=== PATIENT | male | born 1950 | race Caucasian/White ===

== ENCOUNTER 2016-02-11 08:41 | Outpatient (RCR) | payer BC ==
--- OUTSIDE RECORDS SUMMARY | 2015-11-18 08:58 | XMS REPORT | Continuity of Care Document ---
Author Author [facility] Organization [facility] Address Unknown Phone Unavailable Care Team Providers Care Community Support Specialist Name Role Phone TI LAU MD PCP Insurance Providers Payer Name Policy Number Subscriber Name Relationship [facility] [id number] David Alexis 18 Self / Same As Patient Advance Directives Directive Response Recorded Date/Time Advance Directives No 08/22/15 9:07pm Health Care Power of Ballistic Expert No 08/22/15 9:07pm Organ Donor Y Per - Mariza 08/22/15 9:07pm Resuscitation Status Full Code 08/22/15 9:07pm Chief Complaint and Reason for Visit Chief Complaint Respiratory Problems Reason for Visit Urinary tract infection Status post partial colectomy Pneumonia Problems Active Problems Medical Problem Onset Date Status Pneumonia Unknown Acute Urinary tract infection Unknown Acute Medications Current Home Medications Medication Dose Units Route Directions Days/Qty Instructions Start Date Losartan Potassium 100 Mg 100 Mg Oral Daily 07/31/15 Amlodipine Besylate 5 Mg 5 Mg Oral Daily 07/31/15 Alprazolam 1 Mg 0.5-1 Mg Oral Daily as needed for Anxiety 08/07/15 Hydrocodone/Acetaminophen 1 Each 1 Each Oral Every 4HRS as needed for Abdominal Pain 30 08/18/15 Atenolol 50 Mg 50 Mg Oral Daily 30 08/18/15 Ciprofloxacin Hcl 500 Mg 500 Mg Oral Twice A Day 14 08/23/15 Past Home Medications Medication Directions Ordered Status Multivitamin 1 Each Tablet, 1 Tab Oral Daily 07/31/15 Discontinued Ciprofloxacin Hcl 500 Mg Tablet, 500 Mg Oral Twice A Day 08/07/15 Discontinued Social History Social History Problem Response Recorded Date/Time Alcohol Use Occasionally Uses 08/22/2015 9:07pm Recreational Drug Use No 08/22/2015 9:07pm Recent Foreign Travel No 08/22/2015 9:07pm Recent Infectious Disease Exposure No 08/22/2015 9:07pm Hospitalization with Isolation Denies 08/22/2015 9:07pm Smoking Status Former Smoker 08/22/2015 9:07pm Query Response Start Date Stop Date Smoking Status Former Smoker Hospital Discharge Instructions No hospital discharge instructions. Plan of Care Discharge Date 08/23/15 1:03am Disposition 01 HOME, SELF-CARE Condition at Discharge Improved Instructions/Education Provided Urinary Tract Infection in Men (ED) Community-acquired Pneumonia (ED) Prescriptions See Medication Section Referrals TI LAU MD - Primary Care Physician YONATAN CID MD - Additional Instructions/Education All discharge instructions reviewed with patient and/or family. Voiced understanding. Medications as instructed. Albuterol inhaler 2 puffs every 4-6 hours as needed for shortness of air. Incentive spirometer as instructed every 1-2 hours while awake. Follow-up with Dr. Cid as previously scheduled. Have nursing staff contact Dr. Cid prior to removing PICC line to notify him of diagnosis from the emergency department visit. Follow-up with family practitioner as needed. Return immediately to the emergency department for worsened pain, fever, vomiting, shortness of air, chest pain, decreased urination, inability to urinate, abdominal swelling, or any other concerns. Functional Status No functional status results. Allergies, Adverse Reactions, Alerts No known allergies. Immunizations No immunization records. Vital Signs Acute Vital Signs Vital Response Date/Time Temperature (Fahrenheit) 98.9 degrees F (97.6 - 99.5) 08/22/2015 9:07pm Temperature (Calculated Celsius) 37.21838 degrees C (36.4 - 37.5) 08/22/2015 9:07pm Temperature Source Tympanic 08/18/2015 6:22pm Pulse Rate (adult) 61 bpm (60 - 90) 08/23/2015 12:58am Respiratory Rate 18 bpm (12 - 24) 08/23/2015 12:58am O2 Sat by Pulse Oximetry 98 % (88 - 100) 08/23/2015 12:58am Blood Pressure 155/85 mm Hg 08/23/2015 12:58am Blood Pressure Mean 102 mm Hg 08/22/2015 9:07pm Pain Numeric Pain Scale 2 08/22/2015 9:07pm Pain Intensity 3 08/18/2015 1:12pm Height (Feet) 5 feet 08/22/2015 9:07pm Height (Inches) 10 inches 08/22/2015 9:07pm Height (Calculated Centimeters) 177.041877 cm 08/22/2015 9:07pm Weight (Pounds) 175 pounds 08/22/2015 9:07pm Weight (Ounces) 2.0 oz 08/18/2015 6:00am Weight (Calculated Grams) 18460.995 gm 08/18/2015 6:00am Weight (Calculated Kilograms) 79.860562 kilograms 08/22/2015 9:07pm Calculated BMI 25.0 08/07/2015 1:22pm Results Laboratory Results Test Name Result Units Flags Reference Collection Date/Time Result Date/ Time Comments White Blood Count 8.6 10^3/uL 4.3-11.0 08/02/2015 10:57am 08/02/2015 11 :13am Red Blood Count 4.98 10^6/uL 4.35-5.85 08/02/2015 10:57am 08/02/2015 11 :13am Hemoglobin 14.3 G/DL 13.3-17.7 08/02/2015 10:57am 08/02/2015 11:13am Hematocrit 43 % 40-54 08/02/2015 10:57am 08/02/2015 11:13am Mean Corpuscular Volume 85 FL 80-99 08/02/2015 10:57am 08/02/2015 11: 13am Mean Corpuscular Hemoglobin 29 PG 25-34 08/02/2015 10:57am 08/02/2015 11:13am Mean Corpuscular Hemoglobin Concent 34 G/DL 32-36 08/02/2015 10:57am 11:13am Red Cell Distribution Width 14.3 % 10.0-14.5 08/02/2015 10:57am 2015 11:13am Platelet Count 370 10^3/uL 130-400 08/02/2015 10:57am 08/02/2015 11: 13am Mean Platelet Volume 10.3 FL 7.4-10.4 08/02/2015 10:57am 08/02/2015 11: 13am Neutrophils (%) (Auto) 69 % 42-75 08/02/2015 10:57am 08/02/2015 11: 13am Lymphocytes (%) (Auto) 20 % 12-44 08/02/2015 10:57am 08/02/2015 11: 13am Monocytes (%) (Auto) 8 % 0-12 08/02/2015 10:57am 08/02/2015 11:13am Eosinophils (%) (Auto) 2 % 0-10 08/02/2015 10:57am 08/02/2015 11:13am Basophils (%) (Auto) 1 % 0-10 08/02/2015 10:57am 08/02/2015 11:13am Neutrophils # (Auto) 5.9 X 10^3 1.8-7.8 08/02/2015 10:57am 08/02/2015 11:13am Lymphocytes # (Auto) 1.8 X 10^3 1.0-4.0 08/02/2015 10:57am 08/02/2015 11:13am Monocytes # (Auto) 0.7 X 10^3 0.0-1.0 08/02/2015 10:57am 08/02/2015 11: 13am Eosinophils # (Auto) 0.2 10^3/uL 0.0-0.3 08/02/2015 10:57am 08/02/2015 11:13am Basophils # (Auto) 0.0 10^3/uL 0.0-0.1 08/02/2015 10:57am 08/02/2015 11 :13am Sodium Level 136 MMOL/L 135-145 08/02/2015 10:57am 08/02/2015 11:28am Potassium Level 4.2 MMOL/L 3.6-5.0 08/02/2015 10:57am 08/02/2015 11: 28am Chloride Level 99 MMOL/L 98-107 08/02/2015 10:57am 08/02/2015 11:28am Carbon Dioxide Level 26 MMOL/L 21-32 08/02/2015 10:57am 08/02/2015 11: 28am Anion Gap 11 MMOL/L 5-14 08/02/2015 10:57am 08/02/2015 11:28am Blood Urea Nitrogen 8 MG/DL 7-18 08/02/2015 10:57am 08/02/2015 11:28am Creatinine 0.89 MG/DL 0.60-1.30 08/02/2015 10:57am 08/02/2015 11:28am BUN/Creatinine Ratio 9 08/02/2015 10:57am 08/02/2015 11:28am Estimat Glomerular Filtration Rate > 60 08/02/2015 10:57am 2015 11:28am GFR INTERPRETIVE DATA UNITS FOR ESTIMATED GFR (eGFR): mL/min/1.73 M2 REFERENCE RANGE FOR ESTIMATED GFR (eGFR) eGFR NORMAL eGFR >60 MODERATELY DECREASED eGFR 30-59 SEVERLY DECREASED eGFR 15-29 KIDNEY FAILURE <15 (OR DIALYSIS) Glucose Level 83 MG/DL 70-105 08/02/2015 10:57am 08/02/2015 11:28am Calcium Level 9.2 MG/DL 8.5-10.1 08/02/2015 10:57am 08/02/2015 11:28am Total Bilirubin 0.9 MG/DL 0.1-1.0 08/02/2015 10:57am 08/02/2015 11: 28am Alkaline Phosphatase 104 U/L 40-136 08/02/2015 10:57am 08/02/2015 11: 28am Aspartate Amino Transf (AST/SGOT) 30 U/L 5-34 08/02/2015 10:57am 2015 11:28am Alanine Aminotransferase (ALT/SGPT) 36 U/L 0-55 08/02/2015 10:57am 11:28am Total Protein 7.4 G/DL 6.4-8.2 08/02/2015 10:57am 08/02/2015 11:28am Albumin 4.1 G/DL 3.2-4.5 08/02/2015 10:57am 08/02/2015 11:28am Pending Laboratory Results Test Name Collection Date/Time Pending Microbiology Results Procedure Source Collection Date/Time Procedures Procedure Status Date Provider(s) COLONOSCOPY AND BIOPSY Completed 08/02/15 WHITNEY BAZAN MD RESECTION OF SIGMOID COLON, OPEN APPROACH Completed 08/12/15 YONATAN CID MD EXCISION OF RECTUM, OPEN APPROACH Completed 08/12/15 YONATAN CID MD Encounters Encounter Location Arrival/Admit Date Discharge/Depart Date Attending Provider Departed Emergency Room [facility] 08/22/15 8:48pm 08/22 1:03am DEBBIE BRIZUELA Discharged Inpatient [facility] 08/07/15 10:21am 8:15pm HELEN REZA MD Departed Surgical Day Care [facility] 08/02/15 8:45am 2:50pm WHITNEY BAZAN MD Registered Clinic [facility] 07/31/15 7:18am WHITNEY BAZAN MD Recent Diagnosis
[2015-11-18 09:34] LABS: BASOPHILS % (AUTO) 1 % (0-10); EOSINOPHILS # (AUTO) 0.3 10^3/uL (0.0-0.3); EOSINOPHILS % (AUTO) 8 % (0-10); LYMPHOCYTES # (AUTO) 1.2 X 10^3 (1.0-4.0); LYMPHOCYTES % (AUTO) 34 % (12-44); MEAN CORPUSCULAR HEMOGLOBIN 29 PG (25-34); MEAN CORPUSCULAR HGB CONC 35 G/DL (32-36); MEAN CORPUSCULAR VOLUME 83 FL (80-99); MEAN PLATELET VOLUME 11.2 FL (7.4-10.4); MONOCYTES # (AUTO) 0.6 X 10^3 (0.0-1.0); MONOCYTES % (AUTO) 19 % (0-12); NEUTROPHILS # (AUTO) 1.3 X 10^3 (1.8-7.8); NEUTROPHILS % (AUTO) 38 % (42-75); PLATELET COUNT 146 10^3/uL (130-400); RED BLOOD COUNT 5.24 10^6/uL (4.35-5.85); RED CELL DISTRIBUTION WIDTH 13.8 % (10.0-14.5); WHITE BLOOD COUNT 3.4 10^3/uL (4.3-11.0)
[2015-11-18 10:06] LABS: ANION GAP 10 MMOL/L (5-14); BLOOD UREA NITROGEN 13 MG/DL (7-18); BUN/CREATININE RATIO 13; CALCIUM 9.4 MG/DL (8.5-10.1); CARBON DIOXIDE 23 MMOL/L (21-32); CHLORIDE 105 MMOL/L (98-107); CREATININE SERUM 1.02 MG/DL (0.60-1.30); GFR ESTIMATED > 60; GLUCOSE 102 MG/DL (70-105); POTASSIUM 4.3 MMOL/L (3.6-5.0); SODIUM 138 MMOL/L (135-145)
[2015-11-25 09:47] LABS: BASOPHILS # (AUTO) 0.1 10^3/uL (0.0-0.1); BASOPHILS % (AUTO) 1 % (0-10); EOSINOPHILS # (AUTO) 0.1 10^3/uL (0.0-0.3); EOSINOPHILS % (AUTO) 3 % (0-10); LYMPHOCYTES # (AUTO) 1.5 X 10^3 (1.0-4.0); LYMPHOCYTES % (AUTO) 31 % (12-44); MEAN CORPUSCULAR HEMOGLOBIN 28 PG (25-34); MEAN CORPUSCULAR HGB CONC 34 G/DL (32-36); MEAN CORPUSCULAR VOLUME 83 FL (80-99); MEAN PLATELET VOLUME 11.5 FL (7.4-10.4); MONOCYTES # (AUTO) 0.8 X 10^3 (0.0-1.0); MONOCYTES % (AUTO) 17 % (0-12); NEUTROPHILS # (AUTO) 2.4 X 10^3 (1.8-7.8); NEUTROPHILS % (AUTO) 49 % (42-75); PLATELET COUNT 129 10^3/uL (130-400); RED BLOOD COUNT 5.03 10^6/uL (4.35-5.85); RED CELL DISTRIBUTION WIDTH 14.5 % (10.0-14.5)
[2015-11-25 10:20] LABS: ALANINE AMINOTRANSFERASE 28 U/L (0-55); ANION GAP 12 MMOL/L (5-14); ASPARTATE AMINO TRANSFERASE 32 U/L (5-34); BILIRUBIN,TOTAL 0.3 MG/DL (0.1-1.0); BLOOD UREA NITROGEN 14 MG/DL (7-18); BUN/CREATININE RATIO 15; CALCIUM 9.1 MG/DL (8.5-10.1); CARBON DIOXIDE 20 MMOL/L (21-32); CHLORIDE 109 MMOL/L (98-107); CREATININE SERUM 0.93 MG/DL (0.60-1.30); GFR ESTIMATED > 60; GLUCOSE 123 MG/DL (70-105); MAGNESIUM 2.3 MG/DL (1.8-2.4); POTASSIUM 3.7 MMOL/L (3.6-5.0); SODIUM 141 MMOL/L (135-145)
[2015-12-02 09:08] LABS: BASOPHILS % (AUTO) 1 % (0-10); EOSINOPHILS # (AUTO) 0.3 10^3/uL (0.0-0.3); EOSINOPHILS % (AUTO) 8 % (0-10); LYMPHOCYTES # (AUTO) 1.3 X 10^3 (1.0-4.0); LYMPHOCYTES % (AUTO) 36 % (12-44); MEAN CORPUSCULAR HEMOGLOBIN 29 PG (25-34); MEAN CORPUSCULAR HGB CONC 35 G/DL (32-36); MEAN CORPUSCULAR VOLUME 83 FL (80-99); MEAN PLATELET VOLUME 11.7 FL (7.4-10.4); MONOCYTES # (AUTO) 0.6 X 10^3 (0.0-1.0); MONOCYTES % (AUTO) 18 % (0-12); NEUTROPHILS # (AUTO) 1.3 X 10^3 (1.8-7.8); NEUTROPHILS % (AUTO) 38 % (42-75); PLATELET COUNT 112 10^3/uL (130-400); RED BLOOD COUNT 5.17 10^6/uL (4.35-5.85); RED CELL DISTRIBUTION WIDTH 14.7 % (10.0-14.5); WHITE BLOOD COUNT 3.5 10^3/uL (4.3-11.0)
[2015-12-02 09:49] LABS: ANION GAP 6 MMOL/L (5-14); BLOOD UREA NITROGEN 14 MG/DL (7-18); BUN/CREATININE RATIO 13; CALCIUM 9.2 MG/DL (8.5-10.1); CARBON DIOXIDE 28 MMOL/L (21-32); CHLORIDE 106 MMOL/L (98-107); CREATININE SERUM 1.09 MG/DL (0.60-1.30); GFR ESTIMATED > 60; GLUCOSE 127 MG/DL (70-105); POTASSIUM 4.6 MMOL/L (3.6-5.0); SODIUM 140 MMOL/L (135-145)
[2015-12-09 08:51] LABS: BASOPHILS % (AUTO) 1 % (0-10); EOSINOPHILS # (AUTO) 0.1 10^3/uL (0.0-0.3); EOSINOPHILS % (AUTO) 2 % (0-10); LYMPHOCYTES # (AUTO) 1.3 X 10^3 (1.0-4.0); LYMPHOCYTES % (AUTO) 28 % (12-44); MEAN CORPUSCULAR HEMOGLOBIN 29 PG (25-34); MEAN CORPUSCULAR HGB CONC 35 G/DL (32-36); MEAN CORPUSCULAR VOLUME 82 FL (80-99); MEAN PLATELET VOLUME 10.8 FL (7.4-10.4); MONOCYTES # (AUTO) 0.8 X 10^3 (0.0-1.0); MONOCYTES % (AUTO) 19 % (0-12); NEUTROPHILS # (AUTO) 2.3 X 10^3 (1.8-7.8); NEUTROPHILS % (AUTO) 51 % (42-75); PLATELET COUNT 122 10^3/uL (130-400); RED BLOOD COUNT 4.94 10^6/uL (4.35-5.85); RED CELL DISTRIBUTION WIDTH 14.9 % (10.0-14.5); WHITE BLOOD COUNT 4.5 10^3/uL (4.3-11.0)
[2015-12-09 09:16] LABS: ALANINE AMINOTRANSFERASE 32 U/L (0-55); ALBUMIN 3.8 G/DL (3.2-4.5); ANION GAP 9 MMOL/L (5-14); ASPARTATE AMINO TRANSFERASE 37 U/L (5-34); BILIRUBIN,TOTAL 0.4 MG/DL (0.1-1.0); BLOOD UREA NITROGEN 19 MG/DL (7-18); BUN/CREATININE RATIO 22; CALCIUM 9.3 MG/DL (8.5-10.1); CARBON DIOXIDE 24 MMOL/L (21-32); CHLORIDE 106 MMOL/L (98-107); CREATININE SERUM 0.87 MG/DL (0.60-1.30); GFR ESTIMATED > 60; GLUCOSE 116 MG/DL (70-105); MAGNESIUM 2.1 MG/DL (1.8-2.4); POTASSIUM 3.9 MMOL/L (3.6-5.0); SODIUM 139 MMOL/L (135-145); TOTAL PROTEIN 7.1 G/DL (6.4-8.2)
[2015-12-16 08:59] LABS: BASOPHILS % (AUTO) 1 % (0-10); EOSINOPHILS # (AUTO) 0.2 10^3/uL (0.0-0.3); EOSINOPHILS % (AUTO) 6 % (0-10); LYMPHOCYTES # (AUTO) 1.3 X 10^3 (1.0-4.0); LYMPHOCYTES % (AUTO) 40 % (12-44); MEAN CORPUSCULAR HEMOGLOBIN 29 PG (25-34); MEAN CORPUSCULAR HGB CONC 34 G/DL (32-36); MEAN CORPUSCULAR VOLUME 84 FL (80-99); MONOCYTES # (AUTO) 0.6 X 10^3 (0.0-1.0); MONOCYTES % (AUTO) 17 % (0-12); NEUTROPHILS # (AUTO) 1.2 X 10^3 (1.8-7.8); NEUTROPHILS % (AUTO) 37 % (42-75); PLATELET COUNT 130 10^3/uL (130-400); RED BLOOD COUNT 4.88 10^6/uL (4.35-5.85); RED CELL DISTRIBUTION WIDTH 15.2 % (10.0-14.5); WHITE BLOOD COUNT 3.2 10^3/uL (4.3-11.0)
[2015-12-16 09:30] LABS: ANION GAP 7 MMOL/L (5-14); BLOOD UREA NITROGEN 13 MG/DL (7-18); BUN/CREATININE RATIO 14; CARBON DIOXIDE 29 MMOL/L (21-32); CHLORIDE 103 MMOL/L (98-107); CREATININE SERUM 0.95 MG/DL (0.60-1.30); GFR ESTIMATED > 60; GLUCOSE 131 MG/DL (70-105); POTASSIUM 4.5 MMOL/L (3.6-5.0); SODIUM 139 MMOL/L (135-145)
[2015-12-23 09:01] LABS: BASOPHILS % (AUTO) 1 % (0-10); EOSINOPHILS # (AUTO) 0.1 10^3/uL (0.0-0.3); EOSINOPHILS % (AUTO) 3 % (0-10); LYMPHOCYTES # (AUTO) 1.2 X 10^3 (1.0-4.0); LYMPHOCYTES % (AUTO) 33 % (12-44); MEAN CORPUSCULAR HEMOGLOBIN 29 PG (25-34); MEAN CORPUSCULAR HGB CONC 35 G/DL (32-36); MEAN CORPUSCULAR VOLUME 84 FL (80-99); MEAN PLATELET VOLUME 11.1 FL (7.4-10.4); MONOCYTES # (AUTO) 0.8 X 10^3 (0.0-1.0); MONOCYTES % (AUTO) 21 % (0-12); NEUTROPHILS # (AUTO) 1.6 X 10^3 (1.8-7.8); NEUTROPHILS % (AUTO) 43 % (42-75); PLATELET COUNT 122 10^3/uL (130-400); RED BLOOD COUNT 4.54 10^6/uL (4.35-5.85); RED CELL DISTRIBUTION WIDTH 16.1 % (10.0-14.5); WHITE BLOOD COUNT 3.8 10^3/uL (4.3-11.0)
[2015-12-23 09:24] LABS: ALANINE AMINOTRANSFERASE 36 U/L (0-55); ALBUMIN 3.6 G/DL (3.2-4.5); ANION GAP 8 MMOL/L (5-14); ASPARTATE AMINO TRANSFERASE 39 U/L (5-34); BILIRUBIN,TOTAL 0.6 MG/DL (0.1-1.0); BLOOD UREA NITROGEN 9 MG/DL (7-18); BUN/CREATININE RATIO 10; CALCIUM 9.2 MG/DL (8.5-10.1); CARBON DIOXIDE 26 MMOL/L (21-32); CHLORIDE 107 MMOL/L (98-107); CREATININE SERUM 0.89 MG/DL (0.60-1.30); GFR ESTIMATED > 60; GLUCOSE 111 MG/DL (70-105); POTASSIUM 3.9 MMOL/L (3.6-5.0); SODIUM 141 MMOL/L (135-145); TOTAL PROTEIN 6.6 G/DL (6.4-8.2)
[2015-12-30 09:42] LABS: BASOPHILS % (AUTO) 1 % (0-10); EOSINOPHILS # (AUTO) 0.1 10^3/uL (0.0-0.3); EOSINOPHILS % (AUTO) 5 % (0-10); LYMPHOCYTES # (AUTO) 1.2 X 10^3 (1.0-4.0); LYMPHOCYTES % (AUTO) 40 % (12-44); MEAN CORPUSCULAR HEMOGLOBIN 29 PG (25-34); MEAN CORPUSCULAR HGB CONC 34 G/DL (32-36); MEAN CORPUSCULAR VOLUME 86 FL (80-99); MEAN PLATELET VOLUME 12.1 FL (7.4-10.4); MONOCYTES # (AUTO) 0.8 X 10^3 (0.0-1.0); MONOCYTES % (AUTO) 25 % (0-12); NEUTROPHILS # (AUTO) 0.9 X 10^3 (1.8-7.8); NEUTROPHILS % (AUTO) 30 % (42-75); PLATELET COUNT 154 10^3/uL (130-400); RED BLOOD COUNT 4.76 10^6/uL (4.35-5.85); RED CELL DISTRIBUTION WIDTH 16.2 % (10.0-14.5); WHITE BLOOD COUNT 3.1 10^3/uL (4.3-11.0)
[2015-12-30 10:05] LABS: ANION GAP 8 MMOL/L (5-14); BLOOD UREA NITROGEN 15 MG/DL (7-18); BUN/CREATININE RATIO 17; CALCIUM 9.6 MG/DL (8.5-10.1); CARBON DIOXIDE 26 MMOL/L (21-32); CHLORIDE 104 MMOL/L (98-107); CREATININE SERUM 0.89 MG/DL (0.60-1.30); GFR ESTIMATED > 60; GLUCOSE 101 MG/DL (70-105); POTASSIUM 4.6 MMOL/L (3.6-5.0); SODIUM 138 MMOL/L (135-145)
[2016-01-06 09:27] LABS: BASOPHILS % (AUTO) 1 % (0-10); EOSINOPHILS # (AUTO) 0.1 10^3/uL (0.0-0.3); EOSINOPHILS % (AUTO) 2 % (0-10); LYMPHOCYTES # (AUTO) 1.4 X 10^3 (1.0-4.0); LYMPHOCYTES % (AUTO) 29 % (12-44); MEAN CORPUSCULAR HEMOGLOBIN 29 PG (25-34); MEAN CORPUSCULAR HGB CONC 34 G/DL (32-36); MEAN CORPUSCULAR VOLUME 85 FL (80-99); MEAN PLATELET VOLUME 10.7 FL (7.4-10.4); MONOCYTES % (AUTO) 21 % (0-12); NEUTROPHILS # (AUTO) 2.2 X 10^3 (1.8-7.8); NEUTROPHILS % (AUTO) 47 % (42-75); PLATELET COUNT 127 10^3/uL (130-400); RED CELL DISTRIBUTION WIDTH 17.7 % (10.0-14.5); WHITE BLOOD COUNT 4.6 10^3/uL (4.3-11.0)
[2016-01-06 09:52] LABS: ALANINE AMINOTRANSFERASE 33 U/L (0-55); ALBUMIN 3.8 G/DL (3.2-4.5); ANION GAP 7 MMOL/L (5-14); ASPARTATE AMINO TRANSFERASE 43 U/L (5-34); BILIRUBIN,TOTAL 0.8 MG/DL (0.1-1.0); BLOOD UREA NITROGEN 13 MG/DL (7-18); BUN/CREATININE RATIO 16; CALCIUM 9.1 MG/DL (8.5-10.1); CARBON DIOXIDE 24 MMOL/L (21-32); CHLORIDE 107 MMOL/L (98-107); CREATININE SERUM 0.83 MG/DL (0.60-1.30); GFR ESTIMATED > 60; GLUCOSE 97 MG/DL (70-105); MAGNESIUM 2.1 MG/DL (1.8-2.4); POTASSIUM 3.8 MMOL/L (3.6-5.0); SODIUM 138 MMOL/L (135-145); TOTAL PROTEIN 6.8 G/DL (6.4-8.2)
[2016-01-13 09:04] LABS: BASOPHILS % (AUTO) 1 % (0-10); EOSINOPHILS # (AUTO) 0.2 10^3/uL (0.0-0.3); EOSINOPHILS % (AUTO) 5 % (0-10); LYMPHOCYTES # (AUTO) 1.4 X 10^3 (1.0-4.0); LYMPHOCYTES % (AUTO) 40 % (12-44); MEAN CORPUSCULAR HEMOGLOBIN 30 PG (25-34); MEAN CORPUSCULAR HGB CONC 34 G/DL (32-36); MEAN CORPUSCULAR VOLUME 87 FL (80-99); MEAN PLATELET VOLUME 10.9 FL (7.4-10.4); MONOCYTES # (AUTO) 0.8 X 10^3 (0.0-1.0); MONOCYTES % (AUTO) 21 % (0-12); NEUTROPHILS # (AUTO) 1.2 X 10^3 (1.8-7.8); NEUTROPHILS % (AUTO) 34 % (42-75); PLATELET COUNT 155 10^3/uL (130-400); RED CELL DISTRIBUTION WIDTH 17.2 % (10.0-14.5); WHITE BLOOD COUNT 3.6 10^3/uL (4.3-11.0)
[2016-01-13 09:40] LABS: ANION GAP 7 MMOL/L (5-14); BLOOD UREA NITROGEN 10 MG/DL (7-18); BUN/CREATININE RATIO 11; CALCIUM 9.3 MG/DL (8.5-10.1); CARBON DIOXIDE 27 MMOL/L (21-32); CHLORIDE 106 MMOL/L (98-107); GFR ESTIMATED > 60; GLUCOSE 100 MG/DL (70-105); POTASSIUM 4.4 MMOL/L (3.6-5.0); SODIUM 140 MMOL/L (135-145)
[2016-01-20 09:07] LABS: BASOPHILS % (AUTO) 1 % (0-10); EOSINOPHILS # (AUTO) 0.2 10^3/uL (0.0-0.3); EOSINOPHILS % (AUTO) 3 % (0-10); LYMPHOCYTES # (AUTO) 1.4 X 10^3 (1.0-4.0); LYMPHOCYTES % (AUTO) 24 % (12-44); MEAN CORPUSCULAR HEMOGLOBIN 30 PG (25-34); MEAN CORPUSCULAR HGB CONC 34 G/DL (32-36); MEAN CORPUSCULAR VOLUME 89 FL (80-99); MEAN PLATELET VOLUME 11.3 FL (7.4-10.4); MONOCYTES # (AUTO) 1.3 X 10^3 (0.0-1.0); MONOCYTES % (AUTO) 22 % (0-12); NEUTROPHILS # (AUTO) 2.9 X 10^3 (1.8-7.8); NEUTROPHILS % (AUTO) 50 % (42-75); PLATELET COUNT 127 10^3/uL (130-400); RED BLOOD COUNT 4.16 10^6/uL (4.35-5.85); RED CELL DISTRIBUTION WIDTH 18.5 % (10.0-14.5); WHITE BLOOD COUNT 5.7 10^3/uL (4.3-11.0)
[2016-01-20 09:48] LABS: ALANINE AMINOTRANSFERASE 31 U/L (0-55); ALBUMIN 3.7 G/DL (3.2-4.5); ANION GAP 8 MMOL/L (5-14); ASPARTATE AMINO TRANSFERASE 43 U/L (5-34); BILIRUBIN,TOTAL 1.1 MG/DL (0.1-1.0); BLOOD UREA NITROGEN 13 MG/DL (7-18); BUN/CREATININE RATIO 15; CALCIUM 9.2 MG/DL (8.5-10.1); CARBON DIOXIDE 24 MMOL/L (21-32); CHLORIDE 107 MMOL/L (98-107); CREATININE SERUM 0.84 MG/DL (0.60-1.30); GFR ESTIMATED > 60; GLUCOSE 91 MG/DL (70-105); POTASSIUM 3.9 MMOL/L (3.6-5.0); SODIUM 139 MMOL/L (135-145); TOTAL PROTEIN 6.7 G/DL (6.4-8.2)
[2016-01-27 09:07] LABS: BASOPHILS % (AUTO) 1 % (0-10); EOSINOPHILS # (AUTO) 0.2 10^3/uL (0.0-0.3); EOSINOPHILS % (AUTO) 5 % (0-10); LYMPHOCYTES # (AUTO) 1.6 X 10^3 (1.0-4.0); LYMPHOCYTES % (AUTO) 38 % (12-44); MEAN CORPUSCULAR HEMOGLOBIN 31 PG (25-34); MEAN CORPUSCULAR HGB CONC 34 G/DL (32-36); MEAN CORPUSCULAR VOLUME 91 FL (80-99); MEAN PLATELET VOLUME 11.7 FL (7.4-10.4); MONOCYTES # (AUTO) 1.1 X 10^3 (0.0-1.0); MONOCYTES % (AUTO) 28 % (0-12); NEUTROPHILS # (AUTO) 1.2 X 10^3 (1.8-7.8); NEUTROPHILS % (AUTO) 28 % (42-75); PLATELET COUNT 170 10^3/uL (130-400); RED BLOOD COUNT 4.25 10^6/uL (4.35-5.85); RED CELL DISTRIBUTION WIDTH 17.8 % (10.0-14.5); WHITE BLOOD COUNT 4.1 10^3/uL (4.3-11.0)
[2016-01-27 09:37] LABS: ANION GAP 9 MMOL/L (5-14); BLOOD UREA NITROGEN 17 MG/DL (7-18); BUN/CREATININE RATIO 19; CALCIUM 9.4 MG/DL (8.5-10.1); CARBON DIOXIDE 25 MMOL/L (21-32); CHLORIDE 107 MMOL/L (98-107); GFR ESTIMATED > 60; GLUCOSE 98 MG/DL (70-105); POTASSIUM 4.4 MMOL/L (3.6-5.0); SODIUM 141 MMOL/L (135-145)
[2016-02-03 08:54] LABS: BASOPHILS # (AUTO) 0.1 10^3/uL (0.0-0.1); BASOPHILS % (AUTO) 1 % (0-10); EOSINOPHILS # (AUTO) 0.1 10^3/uL (0.0-0.3); EOSINOPHILS % (AUTO) 2 % (0-10); LYMPHOCYTES # (AUTO) 1.2 X 10^3 (1.0-4.0); LYMPHOCYTES % (AUTO) 24 % (12-44); MEAN CORPUSCULAR HEMOGLOBIN 31 PG (25-34); MEAN CORPUSCULAR HGB CONC 34 G/DL (32-36); MEAN CORPUSCULAR VOLUME 91 FL (80-99); MEAN PLATELET VOLUME 11.4 FL (7.4-10.4); MONOCYTES # (AUTO) 1.2 X 10^3 (0.0-1.0); MONOCYTES % (AUTO) 25 % (0-12); NEUTROPHILS # (AUTO) 2.4 X 10^3 (1.8-7.8); NEUTROPHILS % (AUTO) 48 % (42-75); PLATELET COUNT 132 10^3/uL (130-400); RED BLOOD COUNT 4.14 10^6/uL (4.35-5.85); RED CELL DISTRIBUTION WIDTH 17.6 % (10.0-14.5); WHITE BLOOD COUNT 4.9 10^3/uL (4.3-11.0)
[2016-02-03 09:18] LABS: ALANINE AMINOTRANSFERASE 33 U/L (0-55); ALBUMIN 3.8 G/DL (3.2-4.5); ANION GAP 7 MMOL/L (5-14); ASPARTATE AMINO TRANSFERASE 45 U/L (5-34); BILIRUBIN,TOTAL 0.7 MG/DL (0.1-1.0); BLOOD UREA NITROGEN 15 MG/DL (7-18); BUN/CREATININE RATIO 18; CALCIUM 9.3 MG/DL (8.5-10.1); CARBON DIOXIDE 25 MMOL/L (21-32); CHLORIDE 107 MMOL/L (98-107); CREATININE SERUM 0.84 MG/DL (0.60-1.30); GFR ESTIMATED > 60; GLUCOSE 103 MG/DL (70-105); MAGNESIUM 2.1 MG/DL (1.8-2.4); POTASSIUM 3.9 MMOL/L (3.6-5.0); SODIUM 139 MMOL/L (135-145); TOTAL PROTEIN 6.8 G/DL (6.4-8.2)
[~2016-02-11] VITALS: Ht 177.8 cm; Wt 81.6 kg
[~2016-02-11 08:41] MED LIST: ALPR1TAB7 PO; AMLO5TAB2 PO; ATEN50TA PO; CIPR500T4 PO; CLOT15CR5 TP; D5W 500 ML IV (CANCER CTR) 500 ML IV SCH; D5W IV SCH; FAMOTIDINE 20MG/2ML IV (CANCER CTR) IV SCH; FLUOROURACIL 600 MG in SYRINGE-IVPB 1 SYRINGE IV SCH; FLUOROURACIL 700 MG in SYRINGE-IVPB 1 SYRINGE IV SCH; FLUOROURACIL IV SCH; FOSAPREPITANT 150 MG/NS 150 MG IVPB (CANCER CTR) IV PRN; HYDR-3454 PO; LEUCOVORIN CALCIUM 600 MG in D5W 250 ML IVPB (CANCER CTR) 250 ML IV SCH; LEUCOVORIN CALCIUM 700 MG in D5W 250 ML IVPB (CANCER CTR) 250 ML IV SCH; LEUCOVORIN CALCIUM IV SCH; LOSA100T28 PO; MULT-301 PO; ONDANSETRON 8 MG, DEXAMETHASONE 4 MG/NS 50 ML IVPB (Cancer Ctr) IV SCH; OXALIPLATIN 100 MG, OXALIPLATIN (GENERIC) 10 MG in D5W 250 ML IVPB (CANCER CTR) 250 ML IV SCH; OXALIPLATIN 100 MG, OXALIPLATIN (GENERIC) 30 MG in D5W 250 ML IVPB (CANCER CTR) 250 ML IV SCH; OXALIPLATIN 160 MG in D5W 250 ML IVPB (CANCER CTR) 250 ML IV SCH; OXALIPLATIN IV SCH; OXYC-197 PO; PALONOSETRON 0.25 MG, DEXAMETHASONE 10 MG/NS 50 ML IVPB IV PRN; [UNRECOGNIZED DRUG - OTHER] IV SCH; [UNRECOGNIZED DRUG - OTHER] IV SCH
[2016-02-11 09:03] LABS: BASOPHILS % (AUTO) 1 % (0-10); EOSINOPHILS # (AUTO) 0.2 10^3/uL (0.0-0.3); EOSINOPHILS % (AUTO) 3 % (0-10); LYMPHOCYTES # (AUTO) 1.2 X 10^3 (1.0-4.0); LYMPHOCYTES % (AUTO) 23 % (12-44); MEAN CORPUSCULAR HEMOGLOBIN 31 PG (25-34); MEAN CORPUSCULAR HGB CONC 33 G/DL (32-36); MEAN CORPUSCULAR VOLUME 94 FL (80-99); MEAN PLATELET VOLUME 11.8 FL (7.4-10.4); MONOCYTES # (AUTO) 1.3 X 10^3 (0.0-1.0); MONOCYTES % (AUTO) 24 % (0-12); NEUTROPHILS # (AUTO) 2.6 X 10^3 (1.8-7.8); NEUTROPHILS % (AUTO) 49 % (42-75); PLATELET COUNT 167 10^3/uL (130-400); RED BLOOD COUNT 4.22 10^6/uL (4.35-5.85); WHITE BLOOD COUNT 5.2 10^3/uL (4.3-11.0)
[2016-02-11 09:24] LABS: ANION GAP 9 MMOL/L (5-14); BLOOD UREA NITROGEN 12 MG/DL (7-18); BUN/CREATININE RATIO 13; CARBON DIOXIDE 23 MMOL/L (21-32); CHLORIDE 106 MMOL/L (98-107); CREATININE SERUM 0.91 MG/DL (0.60-1.30); GFR ESTIMATED > 60; GLUCOSE 118 MG/DL (70-105); POTASSIUM 4.2 MMOL/L (3.6-5.0); SODIUM 138 MMOL/L (135-145)
== END 2016-02-16 | disposition home or self-care (01) ==
LOC: ONC 08:41
PROVIDERS: ATTEND Internal Medicine Hematology & Oncology
DX: Z51.11 Encounter for antineoplastic chemotherapy (principal); C18.7 Malignant neoplasm of sigmoid colon; I10 Essential (primary) hypertension; Z79.899 Other long term (current) drug therapy
CPT/HCPCS: 36415; 36591; 80048; 80053; 83735; 85025; 96367; 96368; 96374; 96375; 96411; 96413; 96415; 96521; 99213

== ENCOUNTER → 2016-03-30 | Outpatient (CLI) | payer BC ==
[~2016-03-30] MED LIST changes: +BARIUM SUSPENSION 2.1% (VANILLA SILQ) 450 ML PO ONE; +CATHETER FLUSH 10 ML SYR IV PRN; -D5W 500 ML IV (CANCER CTR) 500 ML IV SCH; -D5W IV SCH; -FAMOTIDINE 20MG/2ML IV (CANCER CTR) IV SCH; -FLUOROURACIL 600 MG in SYRINGE-IVPB 1 SYRINGE IV SCH; -FLUOROURACIL 700 MG in SYRINGE-IVPB 1 SYRINGE IV SCH; -FLUOROURACIL IV SCH; -FOSAPREPITANT 150 MG/NS 150 MG IVPB (CANCER CTR) IV PRN; +IOHEXOL 350 MG/ML 100 ML (OMNIPAQUE 350) VIAL IV ONE; -LEUCOVORIN CALCIUM 600 MG in D5W 250 ML IVPB (CANCER CTR) 250 ML IV SCH; -LEUCOVORIN CALCIUM 700 MG in D5W 250 ML IVPB (CANCER CTR) 250 ML IV SCH; -LEUCOVORIN CALCIUM IV SCH; +NS 100 ML (IVPB) BAG IV ONE; -ONDANSETRON 8 MG, DEXAMETHASONE 4 MG/NS 50 ML IVPB (Cancer Ctr) IV SCH; -OXALIPLATIN 100 MG, OXALIPLATIN (GENERIC) 10 MG in D5W 250 ML IVPB (CANCER CTR) 250 ML IV SCH; -OXALIPLATIN 100 MG, OXALIPLATIN (GENERIC) 30 MG in D5W 250 ML IVPB (CANCER CTR) 250 ML IV SCH; -OXALIPLATIN 160 MG in D5W 250 ML IVPB (CANCER CTR) 250 ML IV SCH; -OXALIPLATIN IV SCH; -PALONOSETRON 0.25 MG, DEXAMETHASONE 10 MG/NS 50 ML IVPB IV PRN; -[UNRECOGNIZED DRUG - OTHER] IV SCH; -[UNRECOGNIZED DRUG - OTHER] IV SCH
--- OUTSIDE RECORDS SUMMARY | 2016-03-30 07:21 | XMS REPORT | Continuity of Care Document ---
Author Author [facility] Organization [facility] Address Unknown Phone Unavailable Care Team Providers Care Director Of Social Media Marketing Name Role Phone TI LAU MD PCP Insurance Providers Payer Name Policy Number Subscriber Name Relationship [facility] [id number] David Alexis 18 Self / Same As Patient Advance Directives Directive Response Recorded Date/Time Advance Directives No 08/22/15 9:07pm Health Care Power of Nut Process Helper No 08/22/15 9:07pm Organ Donor Y Per [...] - 99.5) 08/22/2015 9:07pm Temperature (Calculated Celsius) 37.25003 degrees C (36.4 - 37.5) 08/22/2015 9:07pm [...] 10 inches 08/22/2015 9:07pm Height (Calculated Centimeters) 177.912175 cm 08/22/2015 9:07pm Weight (Pounds) 175 pounds 08/22/2015 9:07pm Weight (Ounces) 2.0 oz 08/18/2015 6:00am Weight (Calculated Grams) 11627.995 gm 08/18/2015 6:00am Weight (Calculated Kilograms) 79.342835 kilograms 08/22/2015 9:07pm Calculated BMI 25.0 08/07/2015 [...] Date Attending Provider Departed Emergency Room [facility] 08/22/15 8:48pm 08/22 1:03am DEBBIE BRIZUELA Discharged Inpatient [facility] 08/07/15 10:21am 8:15pm HELEN REZA MD Departed Surgical Day Care [facility] 08/02/15 8:45am 2:50pm WHITNEY BAZAN MD Registered Clinic [facility] 07/31/15 7:18am WHITNEY BAZAN MD Recent Diagnosis
--- NOTE | 2016-03-30 09:05 | Diagnostic Imaging Report ---
PROCEDURE: CT abdomen and pelvis with and without contrast. TECHNIQUE: Precontrast acquisitions were acquired through the abdomen and pelvis. Multiple contiguous axial images were obtained through the abdomen and pelvis after the administration of intravenous contrast. INDICATION: Colon cancer. 100 mL of Omnipaque 350 is administered intravenously. COMPARISON: 08/07/2015 FINDINGS: The lung bases appear clear. The liver, the spleen, the gallbladder, and the pancreas appear unremarkable. The adrenal glands appear unremarkable. The kidneys have symmetric enhancement and contrast excretion. No hydronephrosis. The unenhanced phase demonstrates no stones. Surgical sutures near the rectum/sigmoid area is noted. The abdominal aorta is normal in caliber. No para-aortic significantly enlarged lymph node is seen. There is a fat-containing umbilical hernia. There is no mass or fluid collection seen. The osseous structures demonstrate mild degenerative changes of the lower lumbar spine. IMPRESSION: No suspicious mass or significantly enlarged lymph node is seen in the abdomen or pelvis. Dictated by: Dictated on workstation # [id number]
== END ==
LOC: RAD 07:19
PROVIDERS: ATTEND Internal Medicine Hematology & Oncology
DX: C18.7 Malignant neoplasm of sigmoid colon (principal)
CPT/HCPCS: 74178

== ENCOUNTER 2016-04-27 08:53 | Outpatient (RCR) | payer BC ==
--- OUTSIDE RECORDS SUMMARY | 2016-02-18 08:59 | XMS REPORT | Continuity of Care Document ---
Author Author [facility] Organization [facility] Address Unknown Phone Unavailable Care Team Providers Care Medical Photographer Name Role Phone TI LAU MD PCP Insurance Providers Payer Name Policy Number Subscriber Name Relationship [facility] [id number] David Alexis 18 Self / Same As Patient Advance Directives Directive Response Recorded Date/Time Advance Directives No 08/22/15 9:07pm Health Care Power of Ink Jet Operator No 08/22/15 9:07pm Organ Donor Y Per [...] - 99.5) 08/22/2015 9:07pm Temperature (Calculated Celsius) 37.58763 degrees C (36.4 - 37.5) 08/22/2015 9:07pm [...] 10 inches 08/22/2015 9:07pm Height (Calculated Centimeters) 177.345515 cm 08/22/2015 9:07pm Weight (Pounds) 175 pounds 08/22/2015 9:07pm Weight (Ounces) 2.0 oz 08/18/2015 6:00am Weight (Calculated Grams) 78149.995 gm 08/18/2015 6:00am Weight (Calculated Kilograms) 79.029637 kilograms 08/22/2015 9:07pm Calculated BMI 25.0 08/07/2015 [...] Date Attending Provider Departed Emergency Room [facility] 08/22/15 8:48pm 08/22 1:03am DEBBIE BRIZUELA Discharged Inpatient [facility] 08/07/15 10:21am 8:15pm HELEN REZA MD Departed Surgical Day Care [facility] 08/02/15 8:45am 2:50pm WHITNEY BAZAN MD Registered Clinic [facility] 07/31/15 7:18am WHITNEY BAZAN MD Recent Diagnosis
[2016-02-18 09:02] LABS: BASOPHILS % (AUTO) 1 % (0-10); EOSINOPHILS # (AUTO) 0.1 10^3/uL (0.0-0.3); EOSINOPHILS % (AUTO) 3 % (0-10); LYMPHOCYTES # (AUTO) 1.3 X 10^3 (1.0-4.0); LYMPHOCYTES % (AUTO) 28 % (12-44); MEAN CORPUSCULAR HEMOGLOBIN 31 PG (25-34); MEAN CORPUSCULAR HGB CONC 34 G/DL (32-36); MEAN CORPUSCULAR VOLUME 92 FL (80-99); MEAN PLATELET VOLUME 11.4 FL (7.4-10.4); MONOCYTES # (AUTO) 1.1 X 10^3 (0.0-1.0); MONOCYTES % (AUTO) 24 % (0-12); NEUTROPHILS % (AUTO) 44 % (42-75); PLATELET COUNT 147 10^3/uL (130-400); RED BLOOD COUNT 4.22 10^6/uL (4.35-5.85); RED CELL DISTRIBUTION WIDTH 15.9 % (10.0-14.5); WHITE BLOOD COUNT 4.4 10^3/uL (4.3-11.0)
[2016-02-18 09:22] LABS: ALANINE AMINOTRANSFERASE 29 U/L (0-55); ALBUMIN 3.8 G/DL (3.2-4.5); ANION GAP 10 MMOL/L (5-14); ASPARTATE AMINO TRANSFERASE 38 U/L (5-34); BILIRUBIN,TOTAL 0.6 MG/DL (0.1-1.0); BLOOD UREA NITROGEN 14 MG/DL (7-18); BUN/CREATININE RATIO 16; CARBON DIOXIDE 23 MMOL/L (21-32); CHLORIDE 107 MMOL/L (98-107); CREATININE SERUM 0.87 MG/DL (0.60-1.30); GFR ESTIMATED > 60; GLUCOSE 95 MG/DL (70-105); MAGNESIUM 1.9 MG/DL (1.8-2.4); POTASSIUM 3.9 MMOL/L (3.6-5.0); SODIUM 140 MMOL/L (135-145); TOTAL PROTEIN 6.8 G/DL (6.4-8.2)
[2016-02-24 09:49] LABS: BASOPHILS % (AUTO) 1 % (0-10); EOSINOPHILS # (AUTO) 0.1 10^3/uL (0.0-0.3); EOSINOPHILS % (AUTO) 2 % (0-10); LYMPHOCYTES # (AUTO) 1.4 X 10^3 (1.0-4.0); LYMPHOCYTES % (AUTO) 30 % (12-44); MEAN CORPUSCULAR HEMOGLOBIN 31 PG (25-34); MEAN CORPUSCULAR HGB CONC 34 G/DL (32-36); MEAN CORPUSCULAR VOLUME 92 FL (80-99); MEAN PLATELET VOLUME 11.1 FL (7.4-10.4); MONOCYTES # (AUTO) 0.8 X 10^3 (0.0-1.0); MONOCYTES % (AUTO) 17 % (0-12); NEUTROPHILS # (AUTO) 2.5 X 10^3 (1.8-7.8); NEUTROPHILS % (AUTO) 51 % (42-75); PLATELET COUNT 199 10^3/uL (130-400); RED BLOOD COUNT 4.42 10^6/uL (4.35-5.85); RED CELL DISTRIBUTION WIDTH 15.1 % (10.0-14.5); WHITE BLOOD COUNT 4.9 10^3/uL (4.3-11.0)
[2016-02-24 10:26] LABS: ANION GAP 9 MMOL/L (5-14); BLOOD UREA NITROGEN 18 MG/DL (7-18); BUN/CREATININE RATIO 20; CALCIUM 9.4 MG/DL (8.5-10.1); CARBON DIOXIDE 25 MMOL/L (21-32); CHLORIDE 105 MMOL/L (98-107); CREATININE SERUM 0.88 MG/DL (0.60-1.30); GFR ESTIMATED > 60; GLUCOSE 97 MG/DL (70-105); POTASSIUM 4.3 MMOL/L (3.6-5.0); SODIUM 139 MMOL/L (135-145)
[2016-03-02 09:16] LABS: BASOPHILS % (AUTO) 0 % (0-10); EOSINOPHILS # (AUTO) 0.1 10^3/uL (0.0-0.3); EOSINOPHILS % (AUTO) 2 % (0-10); LYMPHOCYTES # (AUTO) 1.1 X 10^3 (1.0-4.0); LYMPHOCYTES % (AUTO) 24 % (12-44); MEAN CORPUSCULAR HEMOGLOBIN 31 PG (25-34); MEAN CORPUSCULAR HGB CONC 34 G/DL (32-36); MEAN CORPUSCULAR VOLUME 91 FL (80-99); MEAN PLATELET VOLUME 11.7 FL (7.4-10.4); MONOCYTES # (AUTO) 1.3 X 10^3 (0.0-1.0); MONOCYTES % (AUTO) 29 % (0-12); NEUTROPHILS # (AUTO) 2.1 X 10^3 (1.8-7.8); NEUTROPHILS % (AUTO) 45 % (42-75); PLATELET COUNT 131 10^3/uL (130-400); RED BLOOD COUNT 4.32 10^6/uL (4.35-5.85); RED CELL DISTRIBUTION WIDTH 14.9 % (10.0-14.5); WHITE BLOOD COUNT 4.6 10^3/uL (4.3-11.0)
[2016-03-02 09:45] LABS: ALANINE AMINOTRANSFERASE 30 U/L (0-55); ALBUMIN 3.6 G/DL (3.2-4.5); ANION GAP 6 MMOL/L (5-14); ASPARTATE AMINO TRANSFERASE 43 U/L (5-34); BILIRUBIN,TOTAL 0.5 MG/DL (0.1-1.0); BLOOD UREA NITROGEN 13 MG/DL (7-18); BUN/CREATININE RATIO 14; CALCIUM 8.8 MG/DL (8.5-10.1); CARBON DIOXIDE 25 MMOL/L (21-32); CHLORIDE 105 MMOL/L (98-107); CREATININE SERUM 0.96 MG/DL (0.60-1.30); GFR ESTIMATED > 60; GLUCOSE 98 MG/DL (70-105); POTASSIUM 3.8 MMOL/L (3.6-5.0); SODIUM 136 MMOL/L (135-145); TOTAL PROTEIN 6.7 G/DL (6.4-8.2)
[2016-03-09 09:01] LABS: BASOPHILS # (AUTO) 0.1 10^3/uL (0.0-0.1); BASOPHILS % (AUTO) 2 % (0-10); EOSINOPHILS # (AUTO) 0.1 10^3/uL (0.0-0.3); EOSINOPHILS % (AUTO) 1 % (0-10); LYMPHOCYTES # (AUTO) 1.4 X 10^3 (1.0-4.0); LYMPHOCYTES % (AUTO) 40 % (12-44); MEAN CORPUSCULAR HEMOGLOBIN 31 PG (25-34); MEAN CORPUSCULAR HGB CONC 34 G/DL (32-36); MEAN CORPUSCULAR VOLUME 91 FL (80-99); MEAN PLATELET VOLUME 11.5 FL (7.4-10.4); MONOCYTES # (AUTO) 0.7 X 10^3 (0.0-1.0); MONOCYTES % (AUTO) 19 % (0-12); NEUTROPHILS # (AUTO) 1.4 X 10^3 (1.8-7.8); NEUTROPHILS % (AUTO) 38 % (42-75); PLATELET COUNT 211 10^3/uL (130-400); RED CELL DISTRIBUTION WIDTH 14.4 % (10.0-14.5); WHITE BLOOD COUNT 3.6 10^3/uL (4.3-11.0)
[2016-03-09 09:23] LABS: ANION GAP 8 MMOL/L (5-14); BLOOD UREA NITROGEN 13 MG/DL (7-18); BUN/CREATININE RATIO 12; CALCIUM 9.1 MG/DL (8.5-10.1); CARBON DIOXIDE 26 MMOL/L (21-32); CHLORIDE 104 MMOL/L (98-107); GFR ESTIMATED > 60; GLUCOSE 97 MG/DL (70-105); POTASSIUM 4.1 MMOL/L (3.6-5.0); SODIUM 138 MMOL/L (135-145)
[2016-03-16 09:37] LABS: BASOPHILS # (AUTO) 0.1 10^3/uL (0.0-0.1); BASOPHILS % (AUTO) 1 % (0-10); EOSINOPHILS # (AUTO) 0.1 10^3/uL (0.0-0.3); EOSINOPHILS % (AUTO) 2 % (0-10); LYMPHOCYTES # (AUTO) 1.2 X 10^3 (1.0-4.0); LYMPHOCYTES % (AUTO) 23 % (12-44); MEAN CORPUSCULAR HEMOGLOBIN 31 PG (25-34); MEAN CORPUSCULAR HGB CONC 34 G/DL (32-36); MEAN CORPUSCULAR VOLUME 91 FL (80-99); MEAN PLATELET VOLUME 11.8 FL (7.4-10.4); MONOCYTES # (AUTO) 0.8 X 10^3 (0.0-1.0); MONOCYTES % (AUTO) 15 % (0-12); NEUTROPHILS # (AUTO) 3.1 X 10^3 (1.8-7.8); NEUTROPHILS % (AUTO) 59 % (42-75); PLATELET COUNT 202 10^3/uL (130-400); RED BLOOD COUNT 4.49 10^6/uL (4.35-5.85); RED CELL DISTRIBUTION WIDTH 14.2 % (10.0-14.5); WHITE BLOOD COUNT 5.2 10^3/uL (4.3-11.0)
[2016-03-16 10:03] LABS: ALANINE AMINOTRANSFERASE 31 U/L (0-55); ALBUMIN 3.9 G/DL (3.2-4.5); ANION GAP 8 MMOL/L (5-14); ASPARTATE AMINO TRANSFERASE 32 U/L (5-34); BILIRUBIN,TOTAL 0.4 MG/DL (0.1-1.0); BLOOD UREA NITROGEN 12 MG/DL (7-18); BUN/CREATININE RATIO 14; CALCIUM 9.1 MG/DL (8.5-10.1); CARBON DIOXIDE 26 MMOL/L (21-32); CHLORIDE 105 MMOL/L (98-107); CREATININE SERUM 0.87 MG/DL (0.60-1.30); GFR ESTIMATED > 60; GLUCOSE 102 MG/DL (70-105); MAGNESIUM 1.8 MG/DL (1.8-2.4); POTASSIUM 3.9 MMOL/L (3.6-5.0); SODIUM 139 MMOL/L (135-145)
[~2016-04-27 08:53] MED LIST changes: -BARIUM SUSPENSION 2.1% (VANILLA SILQ) 450 ML PO ONE; -CATHETER FLUSH 10 ML SYR IV PRN; +D5W 500 ML IV (CANCER CTR) 500 ML IV SCH; +FAMOTIDINE 20MG/2ML IV (CANCER CTR) IV SCH; +FOSAPREPITANT 150 MG/NS 150 MG IVPB (CANCER CTR) IV PRN; -IOHEXOL 350 MG/ML 100 ML (OMNIPAQUE 350) VIAL IV ONE; +LEUCOVORIN CALCIUM 600 MG in D5W 250 ML IVPB (CANCER CTR) 250 ML IV SCH; -NS 100 ML (IVPB) BAG IV ONE; +ONDANSETRON 8 MG, DEXAMETHASONE 4 MG/NS 50 ML IVPB (Cancer Ctr) IV SCH; +ONDANSETRON MDV (CANCER CENTER 8 MG, DEXAMETHASONE PF INJ (CANCER C 10 MG in NS (IVPB) ... IV SCH; +OXALIPLATIN 100 MG, OXALIPLATIN (GENERIC) 10 MG in D5W 250 ML IVPB (CANCER CTR) 250 ML IV SCH; +PALONOSETRON 0.25 MG, DEXAMETHASONE 10 MG/NS 50 ML IVPB IV PRN
== END 2016-05-18 | disposition home or self-care (01) ==
LOC: ONC 08:53
PROVIDERS: ATTEND Internal Medicine Hematology & Oncology
DX: C18.7 Malignant neoplasm of sigmoid colon (principal); I10 Essential (primary) hypertension; Z79.899 Other long term (current) drug therapy; Z45.2 Encounter for adjustment and management of vascular access device
CPT/HCPCS: 36415; 36591; 80048; 80053; 82378; 83735; 85025; 96365; 96367; 96375; 96413; 96521; 96523; 99213

== ENCOUNTER 2016-06-15 09:06 | Outpatient (RCR) | payer BC ==
[~2016-06-15 09:06] MED LIST changes: -D5W 500 ML IV (CANCER CTR) 500 ML IV SCH; -FAMOTIDINE 20MG/2ML IV (CANCER CTR) IV SCH; -FOSAPREPITANT 150 MG/NS 150 MG IVPB (CANCER CTR) IV PRN; -LEUCOVORIN CALCIUM 600 MG in D5W 250 ML IVPB (CANCER CTR) 250 ML IV SCH; -ONDANSETRON 8 MG, DEXAMETHASONE 4 MG/NS 50 ML IVPB (Cancer Ctr) IV SCH; -ONDANSETRON MDV (CANCER CENTER 8 MG, DEXAMETHASONE PF INJ (CANCER C 10 MG in NS (IVPB) ... IV SCH; -OXALIPLATIN 100 MG, OXALIPLATIN (GENERIC) 10 MG in D5W 250 ML IVPB (CANCER CTR) 250 ML IV SCH; -PALONOSETRON 0.25 MG, DEXAMETHASONE 10 MG/NS 50 ML IVPB IV PRN
[2016-06-15 09:15] LABS: BASOPHILS % (AUTO) 1 % (0-10); EOSINOPHILS # (AUTO) 0.2 10^3/uL (0.0-0.3); EOSINOPHILS % (AUTO) 3 % (0-10); LYMPHOCYTES # (AUTO) 1.5 X 10^3 (1.0-4.0); LYMPHOCYTES % (AUTO) 30 % (12-44); MEAN CORPUSCULAR HEMOGLOBIN 29 PG (25-34); MEAN CORPUSCULAR HGB CONC 34 G/DL (32-36); MEAN CORPUSCULAR VOLUME 86 FL (80-99); MEAN PLATELET VOLUME 11.6 FL (7.4-10.4); MONOCYTES # (AUTO) 0.7 X 10^3 (0.0-1.0); MONOCYTES % (AUTO) 14 % (0-12); NEUTROPHILS # (AUTO) 2.7 X 10^3 (1.8-7.8); NEUTROPHILS % (AUTO) 52 % (42-75); PLATELET COUNT 192 10^3/uL (130-400); RED BLOOD COUNT 5.41 10^6/uL (4.35-5.85); RED CELL DISTRIBUTION WIDTH 14.3 % (10.0-14.5); WHITE BLOOD COUNT 5.1 10^3/uL (4.3-11.0)
[2016-06-15 09:42] LABS: ALANINE AMINOTRANSFERASE 28 U/L (0-55); ALBUMIN 4.1 G/DL (3.2-4.5); ANION GAP 10 MMOL/L (5-14); ASPARTATE AMINO TRANSFERASE 31 U/L (5-34); BILIRUBIN,TOTAL 0.6 MG/DL (0.1-1.0); BLOOD UREA NITROGEN 13 MG/DL (7-18); BUN/CREATININE RATIO 12; CALCIUM 9.2 MG/DL (8.5-10.1); CARBON DIOXIDE 24 MMOL/L (21-32); CHLORIDE 105 MMOL/L (98-107); GFR ESTIMATED > 60; GLUCOSE 89 MG/DL (70-105); POTASSIUM 3.8 MMOL/L (3.6-5.0); SODIUM 139 MMOL/L (135-145); TOTAL PROTEIN 7.4 G/DL (6.4-8.2)
== END 2016-09-13 | disposition home or self-care (01) ==
LOC: ONC 09:06
PROVIDERS: ATTEND Internal Medicine Hematology & Oncology
DX: C18.7 Malignant neoplasm of sigmoid colon (principal); I10 Essential (primary) hypertension; Z79.899 Other long term (current) drug therapy
CPT/HCPCS: 36591; 80053; 82378; 85025; 99213

== ENCOUNTER 2016-09-28 08:25 | Outpatient (RCR) | payer BC ==
[2016-09-24 08:57] LABS: BASOPHILS % (AUTO) 1 % (0-10); EOSINOPHILS # (AUTO) 0.1 10^3/uL (0.0-0.3); EOSINOPHILS % (AUTO) 1 % (0-10); LYMPHOCYTES # (AUTO) 1.4 X 10^3 (1.0-4.0); LYMPHOCYTES % (AUTO) 26 % (12-44); MEAN CORPUSCULAR HEMOGLOBIN 30 PG (25-34); MEAN CORPUSCULAR HGB CONC 35 G/DL (32-36); MEAN CORPUSCULAR VOLUME 86 FL (80-99); MEAN PLATELET VOLUME 11.3 FL (7.4-10.4); MONOCYTES # (AUTO) 0.9 X 10^3 (0.0-1.0); MONOCYTES % (AUTO) 16 % (0-12); NEUTROPHILS # (AUTO) 3.2 X 10^3 (1.8-7.8); NEUTROPHILS % (AUTO) 57 % (42-75); PLATELET COUNT 216 10^3/uL (130-400); RED BLOOD COUNT 5.43 10^6/uL (4.35-5.85); RED CELL DISTRIBUTION WIDTH 14.8 % (10.0-14.5); WHITE BLOOD COUNT 5.6 10^3/uL (4.3-11.0)
[2016-09-24 09:32] LABS: ALANINE AMINOTRANSFERASE 26 U/L (0-55); ALBUMIN 4.5 GM/DL (3.2-4.5); ANION GAP 8 MMOL/L (5-14); ASPARTATE AMINO TRANSFERASE 33 U/L (5-34); BILIRUBIN,TOTAL 0.8 MG/DL (0.1-1.0); BLOOD UREA NITROGEN 14 MG/DL (7-18); BUN/CREATININE RATIO 14; CALCIUM 9.6 MG/DL (8.5-10.1); CARBON DIOXIDE 27 MMOL/L (21-32); CHLORIDE 100 MMOL/L (98-107); GFR ESTIMATED > 60; GLUCOSE 102 MG/DL (70-105); POTASSIUM 4.7 MMOL/L (3.6-5.0); SODIUM 135 MMOL/L (135-145)
[2016-10-08] MEDS ORDERED: GABA-488 PO (10:53)
[2016-10-08] MEDS ORDERED: OMEP20TA7 PO (10:53)
[2016-10-12] MEDS ORDERED: HYDR-3820 PO (14:19)
== END 2016-11-14 | disposition home or self-care (01) ==
LOC: ONC 08:25
PROVIDERS: ATTEND Internal Medicine Hematology & Oncology
DX: C18.7 Malignant neoplasm of sigmoid colon (principal); I10 Essential (primary) hypertension; Z79.899 Other long term (current) drug therapy; Z45.2 Encounter for adjustment and management of vascular access device
CPT/HCPCS: 36415; 80053; 82378; 85025; 96523; 99213

== ENCOUNTER 2016-10-08 05:47 | Outpatient (CLI) | payer BC ==
[~2016-10-08] VITALS: Ht 177.8 cm; Wt 90.8 kg
[2016-10-08] MEDS ORDERED: GABA-488 PO (10:53)
[2016-10-08] MEDS ORDERED: OMEP20TA7 PO (10:53)
== END 2016-10-08 11:00 ==
LOC: PREOP 05:47
PROVIDERS: ATTEND Surgery
DX: Z01.818 Encounter for other preprocedural examination (principal); K21.9 Gastro-esophageal reflux disease without esophagitis; C18.9 Malignant neoplasm of colon, unspecified

== ENCOUNTER 2016-10-12 10:24 | Day surgery (SDC) | payer BC ==
[~2016-10-12] VITALS: Ht 177.8 cm; Wt 90.8 kg
[~2016-10-12 10:24] MED LIST changes: +GABA-488 PO; +OMEP20TA7 PO
[2016-10-12 10:30] VITALS: BP 149/87
--- NOTE | 2016-10-12 11:06 | History & Physicial ---
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 Date of Admission Date Seen by Provider: Oct 12, 2016 Time Seen by Provider: 11:05 I consulted on this patient on 10/12/16 11:04 Attending Physician Yonatan Cid MD Admitting Physician Neal Benito MD Consult Allergies and Home Medications Allergies Coded Allergies: No Known Drug Allergies (Unverified , 10/03/15) Home Medications Alprazolam 1 Mg Tablet, 0.5-1 MG PO DAILY PRN for ANXIETY, (Reported) Amlodipine Besylate 5 Mg Tablet, 5 MG PO DAILY, (Reported) Gabapentin 300 Mg Capsule, 300 MG PO BID, (Reported) Losartan Potassium 100 Mg Tablet, 100 MG PO DAILY, (Reported) Omeprazole 20 Mg Tablet.dr, 20 MG PO DAILY, (Reported) Past Klmbfsc-Maeumv-Znjosn Hx Patient Social History Marrital Status: Employed/Student: employed Alcohol Beverage of Choice: Beer Smoking Status: Never a Smoker Former Smoker, Quit: Oct 03, 1983 Type Used: Cigarettes Recent Foreign Travel: No Contact w/other who traveled: No Recent Hopitalizations: No Seasonal Allergies Seasonal Allergies: No Surgeries Abdominal Cardiovascular Hypertension Reproductive System Hx Reproductive Disorders: No Sexually Transmitted Disease: No HIV/AIDS: No Gastrointestinal Gastroesophageal Reflux HEENT Loss of Vision: Bilateral Hearing Impairment: Denies Cancer Colon Blood Transfusions Adverse Reaction to a Blood Tr: No Family Medical History Family Hx: Arrhythmia 19 FATHER Cardiovascular disease 19 FATHER FH: esophageal cancer 19 MOTHER, Constitutional: no symptoms reported EENTM: no symptoms reported Respiratory: no symptoms reported Cardiovascular: no symptoms reported Gastrointestinal: no symptoms reported Genitourinary: no symptoms reported Musculoskeletal: no symptoms reported Skin: no symptoms reported Psychiatric/Neurological: No Symptoms Reported Physical Exam Vital Signs Capillary Refill : General Appearance: No Apparent Distress HEENT: Normal ENT Inspection Neck: Normal Inspection Respiratory: Lungs Clear Cardiovascular: Regular Rate, Rhythm Gastrointestinal: Non Tender, Soft Rectal: Deferred Extremity: Normal Inspection Neurologic/Psychiatric: Alert, Oriented x3 Skin: Warm/Dry Assessment/Plan Assessment and Plan gentleman with previous sigmoid carcinoma, completed adjuvant chemotherapy. For removal of Gnaykp-a-Flwj. Problems: YONATAN CID MD Oct 12, 2016 11:06 am
[2016-10-12] MEDS ORDERED: ceFAZolin 1 GM/NS 50 ML IVPB IV ONE ×2 (11:45)
[2016-10-12] MEDS ORDERED: PROPOFOL INJECTION 50 ML IV ONE (12:01)
[2016-10-12] MEDS ORDERED: MIDAZOLAM 2 MG/2 ML (VERSED) VIAL ONE (12:02)
[2016-10-12] MEDS ORDERED: fentaNYL INJECTION 100 MCG/2 ML AMP ONE (12:02)
[2016-10-12] MEDS ORDERED: LACTATED RINGERS 1,000 ML IV ONE (12:05)
[2016-10-12] MEDS ORDERED: LIDOCAINE PF 2% 5 ML (XYLOCAINE) VIAL ONE (12:05)
[2016-10-12] MEDS ORDERED: LACTATED RINGERS 1,000 ML IV PRN (12:16)
[2016-10-12] MEDS ORDERED: BUP/EPI 0.5% 1:200,000 (MARCAINE) 10ML VIAL IJ ONE (12:21)
--- NOTE | 2016-10-12 14:18 | Operative Report ---
Operative Report Date of Procedure/Surgery Oct 12, 2016 Surgeon (s) YONATAN CID MD Compliance Vice President (s): Tracy Kraft(medical student) Post-Operative Diagnosis Grade 1 esophagitis. Very few diverticula on colonoscopy Procedure Performed EGD colonoscopy to cecum Removal of Ooalrb-u-Puto Description of Procedure Anesthesia Type: MAC Estimated blood loss (mL): Minimal Specimen(s) collected/removed None Description of the Procedure Indication for procedure: This gentleman underwent robotic-assisted dissection of the sigmoid carcinoma with primary anastomosis just over a year and has since completed adjuvant chemotherapy. After discussing with his oncologist, it was elected to remove his Urdcbe-g-Aizg. In addition, surveillance colonoscopy and concomitant upper endoscopy to evaluate symptoms of reflux disease were also arranged. Informed consent was obtained after reviewing the procedures in detail. Description of the procedures: EGD: He was placed supine on the operating table and our MENTAL RETARDATION NURSE administered sedation, monitoring his vital signs. The flexible gastroscope was introduced down the esophagus, past the stomach, into the proximal duodenum. Findings Esophagus: Grade 1 esophagitis. Stomach and duodenum were normal. Impression: Symptoms of reflux disease. Grade 1 esophagitis. Colonoscopy: Digital rectal examination was unremarkable. The colonoscope was then introduced into the rectum and advanced past the anastomosis to the cecum. It was then withdrawn slowly and the mucosa examined in a systematic fashion. Finding: Involving the proximal descending colon. Impression: Previous sigmoid carcinoma. No recurrence. No polyps. Recommend annual surveillance colonoscopy. Removal of Dxtemg-u-Wolq: Right infraclavicular fossa was prepared and draped in the usual sterile manner. Prophylactic antibiotics were administered intravenously. Local anesthesia was achieved using 0.5 percent Marcaine and epinephrine. A secondary incision was made along the previous scar and the Cffjtj-k-Flty removal, without risking air embolism. The incision was closed using 3-0 Vicryl for the subcutaneous tissue and 4-0 Vicryl for skin, in a subcuticular fashion. He tolerated the procedures well and was taken back to the nursing area in a stable condition. Findings of the Procedure See operative report Allergies and Home Medications Allergies Coded Allergies: No Known Drug Allergies (Unverified , 10/03/15) Home Medications Alprazolam 1 Mg Tablet, 0.5-1 MG PO DAILY PRN for ANXIETY, (Reported) Amlodipine Besylate 5 Mg Tablet, 5 MG PO DAILY, (Reported) Gabapentin 300 Mg Capsule, 300 MG PO BID, (Reported) Losartan Potassium 100 Mg Tablet, 100 MG PO DAILY, (Reported) Omeprazole 20 Mg Tablet.dr, 20 MG PO DAILY, (Reported) YONATAN CID MD Oct 12, 2016 2:18 pm
[2016-10-12] MEDS ORDERED: HYDR-3820 PO (14:19)
--- NOTE | 2016-10-12 14:20 | Discharge Inst-Simple/Standard ---
Discharge Inst-Standard Discharge Medications New, Converted or Re-Newed RX: RX on Chart Patient Instructions/Follow Up Plan of Care/Instructions/FU: Band-Aid off in 48 hours. Colonoscopy in one year Activity as Tolerated: Yes Discharge Diet: No Restrictions YONATAN CID MD Oct 12, 2016 2:20 pm
[2016-10-12] MEDS ORDERED: ONDANSETRON 4 MG/2 ML (SDV) Z0FRAN IVP PRN (14:30)
[2016-10-12] MEDS ORDERED: fentaNYL INJECTION 100 MCG/2 ML AMP IVP PRN (14:30)
[2016-10-12 14:50] VITALS: BP 146/104
[2016-10-12 15:20] VITALS: BP 150/81
[2016-10-12 15:45] VITALS: BP 148/84
== END 2016-10-12 15:45 | disposition home or self-care (01) ==
LOC: SDC 10:24
PROVIDERS: ATTEND Surgery
DX: K21.0 Gastro-esophageal reflux disease with esophagitis (principal); Z85.038 Personal history of other malignant neoplasm of large intestine; K57.30 Diverticulosis of large intestine without perforation or abscess without bleeding; Z92.21 Personal history of antineoplastic chemotherapy; I10 Essential (primary) hypertension; Z87.891 Personal history of nicotine dependence; Z79.899 Other long term (current) drug therapy; Z11.2 Encounter for screening for other bacterial diseases
CPT/HCPCS: 87081

== ENCOUNTER 2017-01-20 08:43 | Outpatient (RCR) | payer BC ==
[2017-01-15 09:12] LABS: BASOPHILS % (AUTO) 1 % (0-10); EOSINOPHILS # (AUTO) 0.1 10^3/uL (0.0-0.3); EOSINOPHILS % (AUTO) 1 % (0-10); HEMATOCRIT 46 % (40-54); HEMOGLOBIN 16.4 G/DL (13.3-17.7); LYMPHOCYTES # (AUTO) 1.7 X 10^3 (1.0-4.0); LYMPHOCYTES % (AUTO) 30 % (12-44); MEAN CORPUSCULAR HEMOGLOBIN 31 PG (25-34); MEAN CORPUSCULAR HGB CONC 35 G/DL (32-36); MEAN CORPUSCULAR VOLUME 88 FL (80-99); MEAN PLATELET VOLUME 11.6 FL (7.4-10.4); MONOCYTES # (AUTO) 0.6 X 10^3 (0.0-1.0); MONOCYTES % (AUTO) 11 % (0-12); NEUTROPHILS # (AUTO) 3.3 X 10^3 (1.8-7.8); NEUTROPHILS % (AUTO) 58 % (42-75); PLATELET COUNT 188 10^3/uL (130-400); RED BLOOD COUNT 5.25 10^6/uL (4.35-5.85); RED CELL DISTRIBUTION WIDTH 12.4 % (10.0-14.5); WHITE BLOOD COUNT 5.7 10^3/uL (4.3-11.0)
[2017-01-15 09:29] LABS: ALANINE AMINOTRANSFERASE 28 U/L (0-55); ALBUMIN 4.2 GM/DL (3.2-4.5); ALKALINE PHOSPHATASE 101 U/L (40-136); BILIRUBIN,TOTAL 0.9 MG/DL (0.1-1.0); BUN/CREATININE RATIO 9; CALCIUM 9.1 MG/DL (8.5-10.1); CARBON DIOXIDE 25 MMOL/L (21-32); CHLORIDE 101 MMOL/L (98-107); CREATININE SERUM 0.97 MG/DL (0.60-1.30); GFR ESTIMATED > 60; GLUCOSE 137 MG/DL (70-105); POTASSIUM 3.8 MMOL/L (3.6-5.0); SODIUM 135 MMOL/L (135-145); TOTAL PROTEIN 7.7 GM/DL (6.4-8.2)
[~2017-01-20 08:43] MED LIST changes: +HYDR-3820 PO
== END 2017-04-15 | disposition home or self-care (01) ==
LOC: ONC 08:43
PROVIDERS: ATTEND Internal Medicine Hematology & Oncology
DX: C18.7 Malignant neoplasm of sigmoid colon (principal); I10 Essential (primary) hypertension; Z79.899 Other long term (current) drug therapy
CPT/HCPCS: 36415; 80053; 82378; 85025; 99213

== ENCOUNTER 2017-04-21 08:43 | Outpatient (RCR) | payer BC ==
[2017-04-19 08:54] LABS: BASOPHILS % (AUTO) 1 % (0-10); EOSINOPHILS # (AUTO) 0.1 10^3/uL (0.0-0.3); EOSINOPHILS % (AUTO) 1 % (0-10); HEMATOCRIT 47 % (40-54); HEMOGLOBIN 16.5 G/DL (13.3-17.7); LYMPHOCYTES # (AUTO) 1.7 X 10^3 (1.0-4.0); LYMPHOCYTES % (AUTO) 28 % (12-44); MEAN CORPUSCULAR HEMOGLOBIN 31 PG (25-34); MEAN CORPUSCULAR HGB CONC 35 G/DL (32-36); MEAN CORPUSCULAR VOLUME 89 FL (80-99); MEAN PLATELET VOLUME 11.9 FL (7.4-10.4); MONOCYTES # (AUTO) 0.7 X 10^3 (0.0-1.0); MONOCYTES % (AUTO) 11 % (0-12); NEUTROPHILS # (AUTO) 3.6 X 10^3 (1.8-7.8); NEUTROPHILS % (AUTO) 59 % (42-75); PLATELET COUNT 167 10^3/uL (130-400); RED BLOOD COUNT 5.32 10^6/uL (4.35-5.85); RED CELL DISTRIBUTION WIDTH 13.2 % (10.0-14.5); WHITE BLOOD COUNT 6.1 10^3/uL (4.3-11.0)
[2017-04-19 09:20] LABS: ALANINE AMINOTRANSFERASE 28 U/L (0-55); ALBUMIN 4.5 GM/DL (3.2-4.5); ALKALINE PHOSPHATASE 99 U/L (40-136); BUN/CREATININE RATIO 11; CALCIUM 9.3 MG/DL (8.5-10.1); CARBON DIOXIDE 28 MMOL/L (21-32); CHLORIDE 98 MMOL/L (98-107); CREATININE SERUM 1.13 MG/DL (0.60-1.30); GFR ESTIMATED > 60; GLUCOSE 113 MG/DL (70-105); SODIUM 134 MMOL/L (135-145); TOTAL PROTEIN 7.9 GM/DL (6.4-8.2)
== END 2017-07-18 | disposition home or self-care (01) ==
LOC: ONC 08:43
PROVIDERS: ATTEND Internal Medicine Hematology & Oncology
DX: C18.7 Malignant neoplasm of sigmoid colon (principal); I10 Essential (primary) hypertension; Z79.899 Other long term (current) drug therapy; Z45.2 Encounter for adjustment and management of vascular access device
CPT/HCPCS: 80053; 82378; 85025; 99213

== ENCOUNTER 2017-07-28 08:36 | Outpatient (RCR) | payer BC ==
[2017-07-26 08:57] LABS: BASOPHILS % (AUTO) 1 % (0-10); EOSINOPHILS # (AUTO) 0.1 10^3/uL (0.0-0.3); EOSINOPHILS % (AUTO) 2 % (0-10); HEMATOCRIT 49 % (40-54); HEMOGLOBIN 17.4 G/DL (13.3-17.7); LYMPHOCYTES # (AUTO) 1.3 X 10^3 (1.0-4.0); LYMPHOCYTES % (AUTO) 25 % (12-44); MEAN CORPUSCULAR HEMOGLOBIN 32 PG (25-34); MEAN CORPUSCULAR HGB CONC 35 G/DL (32-36); MEAN CORPUSCULAR VOLUME 90 FL (80-99); MEAN PLATELET VOLUME 11.9 FL (7.4-10.4); MONOCYTES # (AUTO) 0.6 X 10^3 (0.0-1.0); MONOCYTES % (AUTO) 11 % (0-12); NEUTROPHILS # (AUTO) 3.4 X 10^3 (1.8-7.8); NEUTROPHILS % (AUTO) 63 % (42-75); PLATELET COUNT 192 10^3/uL (130-400); RED BLOOD COUNT 5.46 10^6/uL (4.35-5.85); RED CELL DISTRIBUTION WIDTH 12.9 % (10.0-14.5); WHITE BLOOD COUNT 5.4 10^3/uL (4.3-11.0)
[2017-07-26 09:15] LABS: ALANINE AMINOTRANSFERASE 29 U/L (0-55); ALBUMIN 4.4 GM/DL (3.2-4.5); ALKALINE PHOSPHATASE 102 U/L (40-136); BILIRUBIN,TOTAL 0.9 MG/DL (0.1-1.0); BUN/CREATININE RATIO 10; CALCIUM 9.1 MG/DL (8.5-10.1); CARBON DIOXIDE 22 MMOL/L (21-32); CHLORIDE 101 MMOL/L (98-107); CREATININE SERUM 1.05 MG/DL (0.60-1.30); GFR ESTIMATED > 60; GLUCOSE 122 MG/DL (70-105); POTASSIUM 4.1 MMOL/L (3.6-5.0); SODIUM 134 MMOL/L (135-145)
[~2017-07-28 08:36] MED LIST changes: -AMLO5TAB2 PO; +AMLO5TAB7 PO; -LOSA100T28 PO; +LOSA100T8 PO; -OXYC-197 PO; +OXYC1TAB87 PO
== END 2017-10-24 | disposition home or self-care (01) ==
LOC: ONC 08:36
PROVIDERS: ATTEND Internal Medicine Hematology & Oncology
DX: C18.7 Malignant neoplasm of sigmoid colon (principal); I10 Essential (primary) hypertension; Z79.899 Other long term (current) drug therapy; Z45.2 Encounter for adjustment and management of vascular access device
CPT/HCPCS: 36415; 80053; 82378; 85025; 99213

== ENCOUNTER 2017-10-27 08:38 | Outpatient (RCR) | payer MEDICARE, OTHER ==
[2017-10-25 08:45] LABS: BASOPHILS % (AUTO) 1 % (0-10); EOSINOPHILS # (AUTO) 0.2 10^3/uL (0.0-0.3); EOSINOPHILS % (AUTO) 2 % (0-10); HEMATOCRIT 48 % (40-54); HEMOGLOBIN 16.9 G/DL (13.3-17.7); LYMPHOCYTES # (AUTO) 1.7 X 10^3 (1.0-4.0); LYMPHOCYTES % (AUTO) 28 % (12-44); MEAN CORPUSCULAR HEMOGLOBIN 31 PG (25-34); MEAN CORPUSCULAR HGB CONC 35 G/DL (32-36); MEAN CORPUSCULAR VOLUME 89 FL (80-99); MEAN PLATELET VOLUME 11.6 FL (7.4-10.4); MONOCYTES # (AUTO) 0.7 X 10^3 (0.0-1.0); MONOCYTES % (AUTO) 11 % (0-12); NEUTROPHILS # (AUTO) 3.6 X 10^3 (1.8-7.8); NEUTROPHILS % (AUTO) 59 % (42-75); PLATELET COUNT 187 10^3/uL (130-400); RED BLOOD COUNT 5.39 10^6/uL (4.35-5.85); RED CELL DISTRIBUTION WIDTH 13.8 % (10.0-14.5); WHITE BLOOD COUNT 6.2 10^3/uL (4.3-11.0)
[2017-10-25 09:04] LABS: ALANINE AMINOTRANSFERASE 33 U/L (0-55); ALBUMIN 4.6 GM/DL (3.2-4.5); ALKALINE PHOSPHATASE 97 U/L (40-136); BILIRUBIN,TOTAL 1.1 MG/DL (0.1-1.0); BUN/CREATININE RATIO 12; CALCIUM 9.6 MG/DL (8.5-10.1); CARBON DIOXIDE 29 MMOL/L (21-32); CHLORIDE 100 MMOL/L (98-107); GFR ESTIMATED > 60; GLUCOSE 105 MG/DL (70-105); SODIUM 137 MMOL/L (135-145); TOTAL PROTEIN 7.9 GM/DL (6.4-8.2)
== END 2017-11-14 | disposition home or self-care (01) ==
LOC: ONC 08:38
PROVIDERS: ATTEND Internal Medicine Hematology & Oncology
DX: C18.7 Malignant neoplasm of sigmoid colon (principal); I10 Essential (primary) hypertension; Z79.899 Other long term (current) drug therapy; Z45.2 Encounter for adjustment and management of vascular access device
CPT/HCPCS: 36415; 80053; 82378; 85025; 99213

== ENCOUNTER 2018-01-27 09:16 | Outpatient (RCR) | payer MEDICARE, OTHER ==
[2018-01-24 08:45] LABS: BASOPHILS % (AUTO) 1 % (0-10); EOSINOPHILS # (AUTO) 0.1 10^3/uL (0.0-0.3); EOSINOPHILS % (AUTO) 2 % (0-10); HEMATOCRIT 50 % (40-54); HEMOGLOBIN 17.5 G/DL (13.3-17.7); LYMPHOCYTES # (AUTO) 1.7 X 10^3 (1.0-4.0); LYMPHOCYTES % (AUTO) 30 % (12-44); MEAN CORPUSCULAR HEMOGLOBIN 32 PG (25-34); MEAN CORPUSCULAR HGB CONC 35 G/DL (32-36); MEAN CORPUSCULAR VOLUME 90 FL (80-99); MEAN PLATELET VOLUME 11.6 FL (7.4-10.4); MONOCYTES # (AUTO) 0.6 X 10^3 (0.0-1.0); MONOCYTES % (AUTO) 10 % (0-12); NEUTROPHILS # (AUTO) 3.2 X 10^3 (1.8-7.8); NEUTROPHILS % (AUTO) 58 % (42-75); PLATELET COUNT 207 10^3/uL (130-400); RED CELL DISTRIBUTION WIDTH 12.7 % (10.0-14.5); WHITE BLOOD COUNT 5.6 10^3/uL (4.3-11.0)
[2018-01-24 09:01] LABS: ALANINE AMINOTRANSFERASE 33 U/L (0-55); ALBUMIN 4.6 GM/DL (3.2-4.5); ALKALINE PHOSPHATASE 89 U/L (40-136); BUN/CREATININE RATIO 13; CALCIUM 9.7 MG/DL (8.5-10.1); CARBON DIOXIDE 26 MMOL/L (21-32); CHLORIDE 102 MMOL/L (98-107); CREATININE SERUM 1.07 MG/DL (0.60-1.30); GFR ESTIMATED > 60; GLUCOSE 102 MG/DL (70-105); POTASSIUM 4.3 MMOL/L (3.6-5.0); SODIUM 139 MMOL/L (135-145); TOTAL PROTEIN 7.9 GM/DL (6.4-8.2)
[~2018-01-27 09:16] MED LIST changes: -AMLO5TAB7 PO; +AMLO5TAB9 PO; -HYDR-3454 PO; +HYDR-3455 PO; +LOSA100T57 PO; -LOSA100T8 PO
== END 2018-04-24 | disposition home or self-care (01) ==
LOC: ONC 09:16
PROVIDERS: ATTEND Internal Medicine Hematology & Oncology
DX: C18.7 Malignant neoplasm of sigmoid colon (principal); I10 Essential (primary) hypertension; Z79.899 Other long term (current) drug therapy
CPT/HCPCS: 36415; 80053; 82378; 85025; 99213

== ENCOUNTER → 2018-07-25 | Outpatient (CLI) | payer MEDICARE, OTHER ==
--- NOTE | 2018-07-25 13:45 | Diagnostic Imaging Report ---
PROCEDURE: CT chest with contrast, CT abdomen and pelvis with and without contrast. TECHNIQUE: Pre and post intravenous contrast axial imaging of the abdomen and pelvis and post contrast axial imaging of the chest were performed. Auto Exposure Controls were utilized during the CT exam to meet ALARA standards for radiation dose reduction. DATE: July 25, 2018. COMPARISON: CT abdomen and pelvis March 30, 2016. PET/CT September 10, 2015. CT chest August 22, 2015. INDICATION: 67-year-old male, history of colon cancer. FINDINGS: There is no identified pulmonary nodule. There is no focal airspace consolidation. There is no pneumothorax. There is no pleural effusion. The central airways are patent. There is no identified central pulmonary embolus. The heart is not enlarged. There is no pericardial effusion. There is no identified abnormally enlarged mediastinal, hilar, or axillary lymph node which meets CT size criteria for adenopathy. The liver is unremarkable in size and contour. There is no identified liver lesion. The main, right, and left portal veins are patent. The gallbladder is unremarkable. There is no intrahepatic or extrahepatic bile duct dilation. The main pancreatic duct is not abnormally dilated. Unremarkable appearance of the pancreatic parenchyma. The spleen is not enlarged. The adrenal glands are unremarkable. Unremarkable appearance of the renal parenchyma. The urinary collecting systems are not distended. There is no identified renal or ureteral stone. The urinary bladder is unremarkable in appearance. The there are sutures at the level of the distal sigmoid colon. There is mild diverticulosis without evidence of acute diverticulitis. There is no CT apparent wall thickening of the colon. The appendix is normal. The intestinal tract is not distended. There is no free intraperitoneal air. There is no drainable fluid collection. There is no free pelvic fluid. There are atherosclerotic calcifications. There is a retroaortic left renal vein. There are atherosclerotic calcifications. There is no identified abnormally enlarged lymph node in the abdomen or pelvis which meets CT size criteria for adenopathy. There is no identified acute bony abnormality. There is no identified bone lesion suspicious for bone metastasis. There is transitional lumbosacral anatomy. If spinal intervention is to be performed in the future, recommend careful correlation with levels. IMPRESSION: CT CHEST, ABDOMEN AND PELVIS. 1. Sutures at the level of the distal sigmoid colon. No evidence of residual or recurrent malignancy. 2. No findings to suggest active malignancy at the level of the chest, abdomen, or pelvis. Dictated by: Dictated on workstation # [id number]
== END ==
LOC: RAD 10:25
PROVIDERS: ATTEND Nurse Practitioner Adult Health
DX: C18.9 Malignant neoplasm of colon, unspecified (principal); Z98.890 Other specified postprocedural states
CPT/HCPCS: 71260; 74178

== ENCOUNTER 2018-07-27 08:32 | Outpatient (RCR) | payer MEDICARE, OTHER ==
[2018-07-25 10:28] LABS: BASOPHILS % (AUTO) 0 % (0-10); EOSINOPHILS # (AUTO) 0.1 10^3/uL (0.0-0.3); EOSINOPHILS % (AUTO) 2 % (0-10); HEMATOCRIT 50 % (40-54); LYMPHOCYTES # (AUTO) 1.7 X 10^3 (1.0-4.0); LYMPHOCYTES % (AUTO) 28 % (12-44); MEAN CORPUSCULAR HEMOGLOBIN 30 PG (25-34); MEAN CORPUSCULAR HGB CONC 34 G/DL (32-36); MEAN CORPUSCULAR VOLUME 89 FL (80-99); MEAN PLATELET VOLUME 11.7 FL (7.4-10.4); MONOCYTES # (AUTO) 0.6 X 10^3 (0.0-1.0); MONOCYTES % (AUTO) 10 % (0-12); NEUTROPHILS # (AUTO) 3.5 X 10^3 (1.8-7.8); NEUTROPHILS % (AUTO) 60 % (42-75); PLATELET COUNT 203 10^3/uL (130-400); RED CELL DISTRIBUTION WIDTH 13.1 % (10.0-14.5); WHITE BLOOD COUNT 5.9 10^3/uL (4.3-11.0)
[2018-07-25 11:12] LABS: ALANINE AMINOTRANSFERASE 30 U/L (0-55); ALBUMIN 4.5 GM/DL (3.2-4.5); ALKALINE PHOSPHATASE 93 U/L (40-136); BILIRUBIN,TOTAL 0.8 MG/DL (0.1-1.0); BUN/CREATININE RATIO 9; CALCIUM 9.7 MG/DL (8.5-10.1); CARBON DIOXIDE 27 MMOL/L (21-32); CHLORIDE 103 MMOL/L (98-107); CREATININE SERUM 1.16 MG/DL (0.60-1.30); GFR ESTIMATED > 60; GLUCOSE 107 MG/DL (70-105); POTASSIUM 4.3 MMOL/L (3.6-5.0); SODIUM 140 MMOL/L (135-145); TOTAL PROTEIN 7.9 GM/DL (6.4-8.2)
== END 2018-10-23 | disposition home or self-care (01) ==
LOC: ONC 08:32
PROVIDERS: ATTEND Internal Medicine Hematology & Oncology
DX: C18.7 Malignant neoplasm of sigmoid colon (principal); I10 Essential (primary) hypertension; Z79.899 Other long term (current) drug therapy
CPT/HCPCS: 36415; 80053; 82378; 84153; 85025; 99213

== ENCOUNTER 2019-01-25 08:37 | Outpatient (RCR) | payer MEDICARE, OTHER ==
[2019-01-23 09:07] LABS: BASOPHILS % (AUTO) 1 % (0-10); EOSINOPHILS # (AUTO) 0.1 10^3/uL (0.0-0.3); EOSINOPHILS % (AUTO) 2 % (0-10); HEMATOCRIT 47 % (40-54); HEMOGLOBIN 16.9 G/DL (13.3-17.7); LYMPHOCYTES # (AUTO) 1.4 X 10^3 (1.0-4.0); LYMPHOCYTES % (AUTO) 29 % (12-44); MEAN CORPUSCULAR HEMOGLOBIN 31 PG (25-34); MEAN CORPUSCULAR HGB CONC 36 G/DL (32-36); MEAN CORPUSCULAR VOLUME 88 FL (80-99); MEAN PLATELET VOLUME 11.9 FL (7.4-10.4); MONOCYTES # (AUTO) 0.5 X 10^3 (0.0-1.0); MONOCYTES % (AUTO) 10 % (0-12); NEUTROPHILS # (AUTO) 2.9 X 10^3 (1.8-7.8); NEUTROPHILS % (AUTO) 58 % (42-75); PLATELET COUNT 182 10^3/uL (130-400); RED CELL DISTRIBUTION WIDTH 12.9 % (10.0-14.5); WHITE BLOOD COUNT 4.9 10^3/uL (4.3-11.0)
[2019-01-23 09:32] LABS: ALANINE AMINOTRANSFERASE 26 U/L (0-55); ALBUMIN 4.4 GM/DL (3.2-4.5); ALKALINE PHOSPHATASE 86 U/L (40-136); BILIRUBIN,TOTAL 0.7 MG/DL (0.1-1.0); BUN/CREATININE RATIO 9; CALCIUM 8.9 MG/DL (8.5-10.1); CARBON DIOXIDE 26 MMOL/L (21-32); CHLORIDE 103 MMOL/L (98-107); CREATININE SERUM 1.07 MG/DL (0.60-1.30); GFR ESTIMATED > 60; GLUCOSE 109 MG/DL (70-105); POTASSIUM 4.4 MMOL/L (3.6-5.0); SODIUM 137 MMOL/L (135-145); TOTAL PROTEIN 7.4 GM/DL (6.4-8.2)
[~2019-01-25 08:37] MED LIST changes: +ACHYD1T PO; -HYDR-3820 PO
== END 2019-04-23 | disposition home or self-care (01) ==
LOC: ONC 08:37
PROVIDERS: ATTEND Internal Medicine Hematology & Oncology
DX: C18.7 Malignant neoplasm of sigmoid colon (principal); I10 Essential (primary) hypertension; G62.9 Polyneuropathy, unspecified; Z79.899 Other long term (current) drug therapy; Z92.21 Personal history of antineoplastic chemotherapy
CPT/HCPCS: 80053; 82378; 85025; 99213

== ENCOUNTER 2019-07-09 14:53 | Emergency (ER) | payer MEDICARE, OTHER ==
[~2019-07-09] VITALS: Ht 177 cm; Wt 90.1 kg
[2019-07-09 15:40] VITALS: BP 176/87
[2019-07-09] MEDS ORDERED: RX-MUPIROCIN (BACTROBAN) 2% OINT 22 GM TUBE TOP STA (15:53)
--- NOTE | 2019-07-09 15:55 | ED Integumentary General ---
General Chief Complaint: Bite-Animal/Human/Insect Stated Complaint: DOG BITE L SIDE Source: patient History of Present Illness Date Seen by Provider: July 09, 2019 Time Seen by Provider: 15:45 Initial Comments PT ARRIVES VIA POV FROM HOME PT STATES HE WAS BITTEN BY NEIGHBOR'S DOG TODAY AROUND 1330 PT STATES THAT HE WAS WALKING IN HIS YARD TO HIS FRONT DRIVEWAY, AND NEIGHBOR'S DOG CHARGED AND BIT HIM ON HIS LEFT CHEST -BIT THROUGH PT'S T-SHIRT SINGLE BITE, NO OTHER INJURIES [facility] WAS AT THE SCENE AND REPORT HAS BEEN MADE, HAS VERIFIED THAT DOG HAS HAD SOME VACCINATIONS, BUT HAVE NOT VERIFIED 100% THAT DOG IS COMPLETELY UP TO DATE, AND ARE CONTINUING TO INVESTIGATE. PT STATES THE DOG IS A DIAS MIX PT'S LAST TETANUS VACCINATION IS UNKNOWN PT IS NOT DIABETIC PT HAS HAD COLON CANCER, BUT COMPLETED TREATMENT 4 YEARS AGO. PCP: DR. BAZAN ONCOLOGIST: DR. STOCK Allergies and Home Medications Allergies Coded Allergies: No Known Drug Allergies (Unverified , 10/03/15) Home Medications Alprazolam 1 Mg Tablet, 0.5-1 MG PO DAILY PRN for ANXIETY, (Reported) Amlodipine Besylate 5 Mg Tablet, 5 MG PO DAILY, (Reported) Amoxicillin/Potassium Clav 1 Each Tablet, 1 EACH PO BID Prescribed by: GIL DE LA ROSA on 07/09/19 1604 Gabapentin 300 Mg Capsule, 300 MG PO BID, (Reported) Hydrocodone Bit/Acetaminophen 1 Each Tablet, 1 TAB PO Q4H PRN for PAIN-MILD TO MODERATE Prescribed by: YONATAN CID on 10/12/16 1419 Losartan Potassium 100 Mg Tablet, 100 MG PO DAILY, (Reported) Mupirocin 22 Gm Oint...g., 22 GM TP BID Prescribed by: GIL DE LA ROSA on 07/09/19 1604 Omeprazole 20 Mg Tablet.dr, 20 MG PO DAILY, (Reported) Patient Home Medication List Home Medication List Reviewed: Yes Review of Systems Review of Systems Constitutional: no symptoms reported Respiratory: no symptoms reported Cardiovascular: no symptoms reported; No chest pain Gastrointestinal: no symptoms reported Musculoskeletal: no symptoms reported Skin: see HPI Psychiatric/Neurological: No Symptoms Reported Endocrine: No Symptoms Reported Hematologic/Lymphatic: No Symptoms Reported Past Xlleine-Qbcxca-Bljneu Hx Past Med/Social Hx: Reviewed and Corrections made Patient Social History Alcohol Use: Occasionally Uses Alcohol Beverage of Choice: Beer Recreational Drug Use: No Smoking Status: Former Smoker Type Used: Cigarettes Former Smoker, Quit: Oct 03, 1983 Recent Foreign Travel: No Contact w/Someone Who Travel: No Recent Hopitalizations: No Seasonal Allergies Seasonal Allergies: No Past Medical History Surgeries: Yes Abdominal, Bowel Surgery Respiratory: No Cardiac: Yes Hypertension Neurological: No Reproductive Disorders: No Sexually Transmitted Disease: No HIV/AIDS: No Genitourinary: No Gastrointestinal: Yes (COLON CANCER) Gastroesophageal Reflux Musculoskeletal: No Endocrine: No Loss of Vision: Bilateral Hearing Impairment: Denies Cancer: Yes Colon Did You Recieve Any Treatments: Yes What Type of Treatment Did You: Surgical Intervention Adverse Reaction/Blood Tranf: No Family Medical History Arrhythmia 19 FATHER Cardiovascular disease 19 FATHER FH: esophageal cancer 19 MOTHER, Physical Exam Vital Signs Vital Signs - First Documented 07/09/19 15:40 Temp 37.0 Pulse 74 Resp 16 B/P (MAP) 176/87 (116) Pulse Ox 97 O2 Delivery Room Air Capillary Refill : General Appearance: WD/WN, no apparent distress Neck: normal inspection Cardiovascular: regular rate, rhythm, no murmur Respiratory: normal breath sounds, no respiratory distress, other (DOG BITE TO LEFT ANTERIOR/LOWER CHEST--ONE AREA WITH FULL THICKNESS PUNCTURE, OTHERWISE IS VARYING DEPTHS OF ABRASIONS. ENTIRE AREA IS APPROXIMATELY 4 CM DIAMETER. NO ACTIVE BLEEDING. 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, no motor/sensory deficits, alert, normal mood/affect, oriented x 3 Skin: normal color, warm/dry, other ( ABOVE) Progress/Results/Core Measures Results/Orders My Orders Orders - GIL DE LA ROSA DO Wound Dressing-Ed (07/09/19 15:53) Dipht,Pertuss(Acell),Tet Adult (Boostrix (07/09/19 16:00) Rx-Mupirocin 2% Oint (Rx-Bactroban) (07/09/19 15:53) Vital Signs/I&O 07/09/19 15:40 Temp 37.0 Pulse 74 Resp 16 B/P (MAP) 176/87 (116) Pulse Ox 97 O2 Delivery Room Air Progress Progress Note : Progress Note PT ADVISED THAT HE WOULD NEED RABIES VACCINATIONS IF THE DOG IS NOT UP TO DATE--THIS CAN BE ARRANGED AN OUTPATIENT, AND WILL NEED TO BE STARTED SOON POSSIBLE. ADVISED TO FOLLOW UP WITH DR. BAZAN REGARDING THIS, WELL FOR WOUND RE-EVALUATION Departure Impression Primary Impression: DOG BITE LEFT CHEST Additional Impression: Uoxplvyogm-ttsjfvjfq-lfybxak (DPT) vaccination administered at current visit Disposition: HOME, SELF-CARE Condition: Stable Departure-Patient Inst. Referrals: WHITNEY BAZAN MD (PCP/Family) Primary Care Physician Patient Instructions: Animal Bites (DC), Diphtheria and Tetanus Toxoids, and Acellular Pertussis Vaccine Add. Discharge Instructions: CLEAN WOUNDS TWICE A DAY WITH ANTIBACTERIAL SOAP AND WATER, PAT DRY APPLY ANTIBIOTIC OINTMENT AND FRESH DRESSING TWICE A DAY FOLLOW UP WITH DR. BAZAN ON WEDNESDAY FOR RECHECK OF WOUND ALSO FOLLOW UP WITH HIM REGARDING THE DOG'S RABIES VACCINATION STATUS. IF NEEDED, OUTPATIENT RABIES VACCINATION SERIES WILL BE ARRANGED. RETURN TO ER IF PROBLEMS All discharge instructions reviewed with patient and/or family. Voiced understanding. Scripts Mupirocin (Mupirocin) 22 Gm Oint...g. 22 GM TP BID, #1 TUBE Prov: GIL DE LA ROSA DO 07/09/19 Amoxicillin/Potassium Clav (Augmentin 875-125 Tablet) 1 Each Tablet 1 EACH PO BID for 10 Days, #20 TAB Prov: GIL DE LA ROSA DO 07/09/19 GIL DE LA ROSA DO July 09, 2019 15:55
[2019-07-09] MEDS ORDERED: TETANUS,DIPTH,PERTUSS P/F (BOOSTRIX) 0.5 ML VIAL IM ONE (16:00)
[2019-07-09] MEDS ORDERED: MUPI22OI2 TP (16:04)
[2019-07-09] MEDS ORDERED: AMOX-358 PO (16:04)
--- NOTE | 2019-07-09 16:20 | NUR ---
WOUND CLEANED WITH NS, SURGICAL SOAP, AND BETADINE.
--- NOTE | 2019-07-09 16:59 | NUR ---
INFO FAXED TO HEALTH DEPT.
== END 2019-07-09 16:30 | disposition home or self-care (01) ==
LOC: EDUNIT# 14:53 → ER 14:54
DX: S21.152A Open bite of left front wall of thorax without penetration into thoracic cavity, initial encounter (principal); S21.132A Puncture wound without foreign body of left front wall of thorax without penetration into thoracic cavity, initial encounter; I10 Essential (primary) hypertension; K21.9 Gastro-esophageal reflux disease without esophagitis; Z23 Encounter for immunization; Z85.038 Personal history of other malignant neoplasm of large intestine; Z87.891 Personal history of nicotine dependence; Z80.0 Family history of malignant neoplasm of digestive organs; Z82.49 Family history of ischemic heart disease and other diseases of the circulatory system; W54.0XXA Bitten by dog, initial encounter; Y92.007 Garden or yard of unspecified non-institutional (private) residence as the place of occurrence of the external cause
CPT/HCPCS: 90715; 99283

== ENCOUNTER 2019-08-14 10:06 | Outpatient (RCR) | payer MEDICARE, OTHER ==
[2019-08-07 08:48] LABS: BASOPHILS % (AUTO) 0 % (0-10); EOSINOPHILS # (AUTO) 0.2 10^3/uL (0.0-0.3); EOSINOPHILS % (AUTO) 4 % (0-10); HEMATOCRIT 47 % (40-54); HEMOGLOBIN 16.2 G/DL (13.3-17.7); LYMPHOCYTES # (AUTO) 1.5 X 10^3 (1.0-4.0); LYMPHOCYTES % (AUTO) 31 % (12-44); MEAN CORPUSCULAR HEMOGLOBIN 31 PG (25-34); MEAN CORPUSCULAR HGB CONC 34 G/DL (32-36); MEAN CORPUSCULAR VOLUME 90 FL (80-99); MEAN PLATELET VOLUME 10.8 FL (7.4-10.4); MONOCYTES # (AUTO) 0.7 X 10^3 (0.0-1.0); MONOCYTES % (AUTO) 13 % (0-12); NEUTROPHILS # (AUTO) 2.5 X 10^3 (1.8-7.8); NEUTROPHILS % (AUTO) 52 % (42-75); PLATELET COUNT 244 10^3/uL (130-400); WHITE BLOOD COUNT 4.9 10^3/uL (4.3-11.0)
[2019-08-07 09:09] LABS: ALANINE AMINOTRANSFERASE 21 U/L (0-55); ALBUMIN 4.3 GM/DL (3.2-4.5); ALKALINE PHOSPHATASE 78 U/L (40-136); BILIRUBIN,TOTAL 0.7 MG/DL (0.1-1.0); BUN/CREATININE RATIO 9; CARBON DIOXIDE 25 MMOL/L (21-32); CHLORIDE 101 MMOL/L (98-107); CREATININE SERUM 1.16 MG/DL (0.60-1.30); GFR ESTIMATED > 60; GLUCOSE 145 MG/DL (70-105); POTASSIUM 4.3 MMOL/L (3.6-5.0); SODIUM 136 MMOL/L (135-145); TOTAL PROTEIN 7.6 GM/DL (6.4-8.2)
[~2019-08-14 10:06] MED LIST changes: +AMOX-358 PO; +CLOT15CR28 TP; -CLOT15CR5 TP; +MUPI22OI2 TP
[2019-09-07] MEDS ORDERED: GABA300C PO (14:24)
[2019-09-07] MEDS ORDERED: AMLO10TA7 PO (14:24)
== END 2019-11-05 | disposition home or self-care (01) ==
LOC: ONC 10:06
PROVIDERS: ATTEND Internal Medicine Hematology & Oncology
DX: C18.7 Malignant neoplasm of sigmoid colon (principal); I10 Essential (primary) hypertension; G62.9 Polyneuropathy, unspecified; Z79.899 Other long term (current) drug therapy; Z92.21 Personal history of antineoplastic chemotherapy
CPT/HCPCS: 80053; 82378; 85025; 99213

== ENCOUNTER 2019-09-11 05:36 | Outpatient (RCR) | payer MEDICARE, OTHER ==
[~2019-09-11] VITALS: Ht 177.8 cm; Wt 83.6 kg
[~2019-09-11 05:36] MED LIST changes: +AMLO10TA7 PO; +GABA300C PO
== END 2019-09-11 10:29 | disposition home or self-care (01) ==
LOC: PREOP 05:36
PROVIDERS: ATTEND Internal Medicine
DX: Z01.812 Encounter for preprocedural laboratory examination (principal); Z85.038 Personal history of other malignant neoplasm of large intestine; Z20.828 Contact with and (suspected) exposure to other viral communicable diseases
CPT/HCPCS: 87635

== ENCOUNTER 2020-01-31 08:30 | Outpatient (RCR) | payer MEDICARE, OTHER ==
[2020-01-25 08:20] LABS: BASOPHILS % (AUTO) 1 % (0-10); EOSINOPHILS # (AUTO) 0.1 10^3/uL (0.0-0.3); EOSINOPHILS % (AUTO) 3 % (0-10); HEMATOCRIT 44 % (40-54); HEMOGLOBIN 15.1 g/dL (13.3-17.7); LYMPHOCYTES # (AUTO) 1.4 10^3/uL (1.0-4.0); LYMPHOCYTES % (AUTO) 32 % (12-44); MEAN CORPUSCULAR HEMOGLOBIN 32 pg (25-34); MEAN CORPUSCULAR HGB CONC 35 g/dL (32-36); MEAN CORPUSCULAR VOLUME 91 fL (80-99); MEAN PLATELET VOLUME 10.8 fL (9.0-12.2); MONOCYTES # (AUTO) 0.6 10^3/uL (0.0-1.0); MONOCYTES % (AUTO) 13 % (0-12); NEUTROPHILS # (AUTO) 2.3 10^3/uL (1.8-7.8); NEUTROPHILS % (AUTO) 52 % (42-75); PLATELET COUNT 234 10^3/uL (130-400); WHITE BLOOD COUNT 4.3 10^3/uL (4.3-11.0)
[2020-01-25 08:33] LABS: ALANINE AMINOTRANSFERASE 34 U/L (0-55); ALBUMIN 4.4 GM/DL (3.2-4.5); ALKALINE PHOSPHATASE 69 U/L (40-136); BILIRUBIN,TOTAL 0.8 MG/DL (0.1-1.0); BUN/CREATININE RATIO 12; CALCIUM 9.3 MG/DL (8.5-10.1); CARBON DIOXIDE 27 MMOL/L (21-32); CHLORIDE 99 MMOL/L (98-107); CREATININE SERUM 1.04 MG/DL (0.60-1.30); GFR ESTIMATED > 60; GLUCOSE 131 MG/DL (70-105); POTASSIUM 4.2 MMOL/L (3.6-5.0); SODIUM 134 MMOL/L (135-145); TOTAL PROTEIN 7.5 GM/DL (6.4-8.2)
[~2020-01-31 08:30] MED LIST changes: +AMLO-250 PO; +AMLO-251 PO; -AMLO10TA7 PO; -AMLO5TAB9 PO; -CIPR500T4 PO; +CIPR500T5 PO
== END 2020-04-24 | disposition home or self-care (01) ==
LOC: ONC 08:30
PROVIDERS: ATTEND Internal Medicine Hematology & Oncology
DX: C18.7 Malignant neoplasm of sigmoid colon (principal); I10 Essential (primary) hypertension; G62.9 Polyneuropathy, unspecified; Z79.899 Other long term (current) drug therapy; Z92.21 Personal history of antineoplastic chemotherapy
CPT/HCPCS: 80053; 82378; 85025; 99213

== ENCOUNTER 2020-08-05 09:15 | Outpatient (RCR) | payer MEDICARE, OTHER ==
[2020-07-23 08:54] LABS: BASOPHILS % (AUTO) 1 % (0-10); EOSINOPHILS # (AUTO) 0.1 10^3/uL (0.0-0.3); EOSINOPHILS % (AUTO) 2 % (0-10); HEMATOCRIT 45 % (40-54); HEMOGLOBIN 15.8 g/dL (13.3-17.7); LYMPHOCYTES # (AUTO) 1.5 10^3/uL (1.0-4.0); LYMPHOCYTES % (AUTO) 35 % (12-44); MEAN CORPUSCULAR HEMOGLOBIN 32 pg (25-34); MEAN CORPUSCULAR HGB CONC 36 g/dL (32-36); MEAN CORPUSCULAR VOLUME 90 fL (80-99); MEAN PLATELET VOLUME 10.6 fL (9.0-12.2); MONOCYTES # (AUTO) 0.6 10^3/uL (0.0-1.0); MONOCYTES % (AUTO) 15 % (0-12); NEUTROPHILS # (AUTO) 1.9 10^3/uL (1.8-7.8); NEUTROPHILS % (AUTO) 47 % (42-75); PLATELET COUNT 248 10^3/uL (130-400); WHITE BLOOD COUNT 4.2 10^3/uL (4.3-11.0)
[2020-07-23 09:22] LABS: ALANINE AMINOTRANSFERASE 45 U/L (0-55); ALBUMIN 4.5 GM/DL (3.2-4.5); ALKALINE PHOSPHATASE 72 U/L (40-136); BILIRUBIN,TOTAL 0.4 MG/DL (0.1-1.0); BUN/CREATININE RATIO 10; CALCIUM 9.5 MG/DL (8.5-10.1); CARBON DIOXIDE 24 MMOL/L (21-32); CHLORIDE 96 MMOL/L (98-107); CREATININE SERUM 0.99 MG/DL (0.60-1.30); GFR ESTIMATED > 60; GLUCOSE 107 MG/DL (70-105); POTASSIUM 4.5 MMOL/L (3.6-5.0); SODIUM 131 MMOL/L (135-145); TOTAL PROTEIN 7.9 GM/DL (6.4-8.2)
[2020-08-08] MEDS ORDERED: HYDR25TA4 PO (10:35)
== END 2020-10-21 | disposition home or self-care (01) ==
LOC: ONC 09:15
PROVIDERS: ATTEND Internal Medicine Hematology & Oncology
DX: C18.7 Malignant neoplasm of sigmoid colon (principal); I10 Essential (primary) hypertension; G62.9 Polyneuropathy, unspecified; N32.89 Other specified disorders of bladder; Z79.899 Other long term (current) drug therapy; Z92.21 Personal history of antineoplastic chemotherapy; Z90.49 Acquired absence of other specified parts of digestive tract
CPT/HCPCS: 80053; 82378; 85025; 99213

== ENCOUNTER 2020-08-14 05:29 | Outpatient (RCR) | payer MEDICARE, OTHER ==
[~2020-08-14] VITALS: Ht 177.8 cm; Wt 89.0 kg
[~2020-08-14 05:29] MED LIST changes: +HYDR25TA4 PO
== END 2020-08-14 08:32 | disposition home or self-care (01) ==
LOC: PREOP 05:29
PROVIDERS: ATTEND Internal Medicine
DX: Z01.812 Encounter for preprocedural laboratory examination (principal); R13.10 Dysphagia, unspecified; Z20.822 Contact with and (suspected) exposure to COVID-19; Z80.0 Family history of malignant neoplasm of digestive organs
CPT/HCPCS: 87635

== ENCOUNTER 2020-08-16 07:15 | Day surgery (SDC) | payer MEDICARE, OTHER ==
--- NOTE | 2020-08-07 19:53 | HISTORY AND PHYSICAL ---
DATE OF SERVICE: EGD HISTORY AND PHYSICAL HISTORY OF PRESENT ILLNESS: The patient is a 70-year-old white male who presented to the office for followup of hypertension and colon cancer on 08/07/2020. He reports that over the last 3 or 4 months, he has been experiencing dysphagia. He reports the mid precordial area where he feels like food hangs up, predominantly that it is solids and not liquids. When it happens sometimes, he will have coughing. He denies any heartburn type symptoms. Feels that his weight and appetite have been stable. He had been trying to portion control to effect some weight loss and compared to his last office weight 6 months ago, he was down 5.2 pounds. FAMILY HISTORY: Pertinent for mother who of esophageal cancer in her late 60s. He has noted no melena or bright red blood per rectum and denies abdominal pain. PAST MEDICAL HISTORY: He is 5 years out from sigmoid resection for colon cancer without evidence for recurrence. He has history of hypertension with known history of vascular disease. PHYSICAL EXAMINATION: GENERAL: Reveals a white male, appeared to be in no acute distress. VITAL SIGNS: Weight 193.4 pounds, blood pressure 150/74 at the beginning of the interview, 130/72 at the end. HEENT: Unremarkable. Sclerae nonicteric. Oral cavity was clear, no exudate or erythema. CHEST: Clear. CARDIOVASCULAR: Reveals a regular rate and rhythm without murmur, S3 or S4. ABDOMEN: Soft, supple without mass, organomegaly or tenderness. EXTREMITIES: Reveal no cyanosis, clubbing or edema. ASSESSMENT AND PLAN: 1. Hypertension, under reasonable control. No medication changes recommended, followup in 6 months. 2. Dysphagia, predominantly to solids, family history of esophageal cancer. The patient is being set up for EGD evaluation with further recommendations pending EGD results. Job ID: [id number] DocumentID: [id number] Dictated Date: 08/07/2020 19:37:39 Twist Tester Date: 08/07/2020 19:52:17 Dictated By: WHITNEY BAZAN MD
[~2020-08-16] VITALS: Ht 177.8 cm; Wt 89.0 kg
[2020-08-16] MEDS ORDERED: LACTATED RINGERS 1,000 ML IV STA (07:16)
[2020-08-16] MEDS ORDERED: LACTATED RINGERS 1,000 ML IV ONE (07:22)
[2020-08-16] MEDS ORDERED: HURRICAINE EXT TUBE (BENZOCAINE) XX PRN (07:30)
[2020-08-16] MEDS ORDERED: LIDOCAINE JELLY 2% 6 ML SYRINGE MM PRN (07:30)
[2020-08-16 07:33] VITALS: BP 136/74
[2020-08-16] MEDS ORDERED: proPOfol 200 MG/20 ML (DIPRIVAN) VIAL IV ONE ×2 (07:39→07:40)
[2020-08-16 08:15] VITALS: BP 117/58
--- NOTE | 2020-08-16 08:16 | Pre-Op Note & Conscious Sedat ---
Pre-Operative Progress Note H&P Reviewed The H&P was reviewed, patient examined and no changes noted. Date H&P Reviewed: Aug 16, 2020 Time H&P Reviewed: 07:40 Conscious Sedation Pre-Proced ASA Score 2 For ASA 3 and 4: Consider anesthesia and medical clearance. Also, for patients with a history of failed moderate sedation consider anesthesia. Airway Lungs Heart ASA score ASA 1: a normal healthy patient ASA 2: a patient with a mild systemic disease (mid diabetes, controlled hypertension, obesity ASA 3: a patient with a severe systemic disease that limits activity (angina, COPD, prior Myocardial infarction) ASA 4: a patient with an incapacitating disease that is a constant threat to life (CHF, renal failure) ASA 5: a moribund patient not expected to survive 24 hrs. (ruptured aneurysm) ASA 6: a declared brain- patient whose organs are being harvested. For emergent operations, add the letter E after the classification Mallampati Classification Grade 2 Sedation Plan Analgesia, Amnesia, Plan communicated to team members, Discussed options with patient/fam, Discussed risks with patient/fam The patient is an appropriate candidate to undergo the planned procedure, sedation, and anesthesia. The patient immediately re-assessed prior to indication. WHITNEY BAZAN MD Aug 16, 2020 08:16
[2020-08-16 08:20] VITALS: BP 120/62
[2020-08-16 08:25] VITALS: BP 122/66
[2020-08-16 08:50] VITALS: BP 144/82
[2020-08-16 09:14] VITALS: BP 144/82
--- NOTE | 2020-08-16 09:18 | Anesthesia-General Post-Op ---
MAC Patient Condition Mental Status/LOC: Same as Preop Cardiovascular: Satisfactory Nausea/Vomiting: Absent Respiratory: Satisfactory Pain: Controlled Complications: Absent Post Op Complications Complications None Follow Up Care/Instructions Patient Instructions None needed. Anesthesiology Discharge Order Discharge Order Patient is doing well, no complaints, stable vital signs, no apparent adverse anesthesia problems. ABRAHAM MUHAMMAD DO Aug 16, 2020 09:18
--- NOTE | 2020-08-16 13:18 | OPERATIVE REPORT ---
DATE OF SERVICE: EGD SUMMARY PRIMARY CARE PROVIDER: Whitney Bazan MD. INDICATION FOR PROCEDURE: Dysphagia and family history of esophageal cancer. DESCRIPTION OF PROCEDURE: The patient was placed in the left lateral decubitus position. The endoscope was inserted in the oral cavity and under direct visualization, the esophagus was intubated. Endoscope was passed down the esophagus through stomach and second portion of the duodenum. Careful inspection was made as the endoscope was withdrawn. FINDINGS: The posterior pharynx, epiglottis, true and false vocal folds and arytenoid aperture were unremarkable to digital inspection. Photographic documentation was obtained. The esophagus was somewhat tortuous secondary to a proximal 2 cm diverticulum with 2 to 3 cm of the cardia of the stomach being present above the level of the diaphragm secondary to this. There was one finger of columnar mucosa extending up about a centimeter from the Z-line. Biopsy was obtained and submitted for evidence for short segment Ding's. There was no evidence for erosive esophagitis. The Z line was distinct otherwise with no evidence for erythema or evidence for extrinsic compression. The cardia, fundus, antrum, pylorus, pyloric channel, duodenal bulb and second portion of the duodenum were unremarkable with no evidence for inflammatory change or peptic ulcer disease. ASSESSMENT: Small to moderate size, approximately 2 cm hiatal hernia was present without evidence for erosive esophagitis. There was some esophageal tortuosity secondary to this. There was one small finger of columnar mucosa extending 1 to 2 cm above the Z-line. Biopsy was obtained and submitted for Ding's. Further recommendations pending biopsy results. Job ID: [id number] DocumentID: [id number] Dictated Date: 08/16/2020 08:24:48 Pillar Worker Date: 08/16/2020 13:17:12 Dictated By: WHITNEY BAZAN MD
== END 2020-08-16 09:14 | disposition home or self-care (01) ==
LOC: ENDO 07:15
PROVIDERS: ATTEND Internal Medicine
DX: K20.90 Esophagitis, unspecified without bleeding (principal); K44.9 Diaphragmatic hernia without obstruction or gangrene; I10 Essential (primary) hypertension; Z85.038 Personal history of other malignant neoplasm of large intestine; Z80.0 Family history of malignant neoplasm of digestive organs; Z79.899 Other long term (current) drug therapy; Z90.49 Acquired absence of other specified parts of digestive tract